=== PATIENT | male | born 1960 | race Two or more races ===

== ENCOUNTER 2021-09-17 18:22 | Inpatient (IN) ==
[2021-09-17] MEDS ORDERED: dilTIAZem HCl 5 MG/ML 5 ML VIAL IV STA ×2 (19:12→20:08)
[2021-09-17] MEDS ORDERED: ADENOSINE IV SOLN 3 MG/ML 2 ML VIAL IV ONE (19:17)
[2021-09-17 19:26] LABS: iSTAT Creatinine 0.5 mg/dl (0.6-1.3); iSTAT Hemoglobin 13.6 g/dl (14.0-18.0); iSTAT Ionized Calcium 1.2 mmol/l (1.12-1.32); iSTAT Potassium 3.6 mmol/L (3.3-5.0)
[2021-09-17 19:26] LABS: Hemoglobin 12.2 g/dL (14.0-18.0); Lymphocytes # (auto) 0.73 K/uL (1.2-3.4); Lymphocytes % (auto) 18.4 %; Mean Corpuscular Hemoglobin 24.4 pg (25-34); Mean Corpuscular Hgb Conc 32.1 g/dL (32-36); Mean Platelet Volume 8.9 fL (7.4-10.4); Monocytes # (auto) 0.01 K/uL (0.11-0.59); Monocytes % (auto) 0.3 %; Neutrophils # (auto) 3.22 K/uL (1.4-6.5); Neutrophils % (auto) 81.3 %; Platelet Count 271 K/uL (130-400); RDW Standard Deviation 42.6 fL (36.4-46.3); White Blood Count 3.96 K/uL (4.8-10.8)
[2021-09-17] MEDS ORDERED: STAT IV Infusion **Titration per Protocol STA (19:27)
[2021-09-17 19:33] LABS: Base Excess VBG 4.1 mEq/L; Oxygen Saturation VBG 95.8 %; pH VBG 7.35 (7.36-7.41)
--- NOTE | 2021-09-17 19:33 | XRay Report ---
XR chest 1V portable HISTORY: 61 years-old Male SEPSIS acute sepsis COMPARISON: PET CT 08/31/2021, chest radiograph 08/24/2021 TECHNIQUE: Portable AP view of the chest FINDINGS: There is progressive now complete opacification of the right hemithorax. Diffuse reticular nodular op acities throughout the left lung. Unchanged cardiac silhouette. Degenerative changes of the shoulders and spine. Lytic bony destruction of the right posterolateral third rib redemonstrated. IMPRESSION: 1. Complete opacification of the right hemithorax. 2. Diffuse reticular nodular opacities throughout the left lung suggestive of pulmonary metastasis. 3. Lytic destructive osseous lesion of the right third rib redemonstrated. ACT 112: Negative or not required by law. The above report was generated using voice recognition software. It may contain grammatical, syntax o r spelling errors. Electronically signed by: Alexys Reddy M.D. 09/17/2021 7:32 PM
[2021-09-17 19:36] LABS: INR 1.2 (0.9-1.1); Partial Thromboplastin Time 26.5 Seconds (21.0-31.0); Prothrombin Time 11.9 Seconds (9.0-12.0)
[2021-09-17] MEDS ORDERED: OPTIRAY 320 125ml IV ONE (19:42)
[2021-09-17 19:45] LABS: Alanine Aminotransferase 17 U/L (7-52); Albumin Globulin Ratio 1.1 (0.9-2); Albumin Level 3.6 gm/dl (3.4-5.0); Alkaline Phosphatase 110 U/L (34-104); Anion Gap 11 (3-11); Aspartate Aminotransferase 17 U/L (13-39); BUN Creatinine Ratio 26.8 (10-20); Bilirubin,Total 0.6 mg/dl (0.2-1.0); Blood Urea Nitrogen 11 mg/dl (6-23); Calcium 9.5 mg/dl (8.5-10.1); Carbon Dioxide 29 mmol/L (21-32); Chloride 83 mmol/L (98-107); Est GFR (African American) 146.1 ml/min; Globulin 3.4 gm/dl (2.5-4.0); Glucose 160 mg/dl (70-99(Fasting)); Magnesium 1.9 mg/dl (1.7-2.4); Potassium 3.5 mmol/L (3.5-5.1); Sodium 123 mmol/L (136-145)
[2021-09-17 19:47] LABS: Troponin I 0.04 ng/ml (0-0.04)
[2021-09-17] MEDS: dilTIAZem HCL 125 MG in DEXTROSE 5% 100 ML IV SCH (19:50)
[2021-09-17] MEDS ORDERED: CEFEPIME 2,000 MG/20 ML VIAL IV STA (19:54)
--- NOTE | 2021-09-17 20:11 | CT Scan Report ---
CT angio chest PE protocol CT DOSE: 467.06 mGy.cm HISTORY: 61 years-old Male with ro PE. Acute shortness of breath TECHNIQUE: Multiple CTA images of the chest were obtained after the intravenous administration of 120 ml Optiray. Coronal and sagittal MIPS were obtained from the axial data set and were submitted for review. All measurements were obtained according to NASCET criteria. A dose lowering technique was u tilized adhering to the principles of ALARA. COMPARISON: Head CT 08/31/2021, chest CT 07/18/2021 FINDINGS: CTA: Moderate cardiomegaly. No pericardial effusion. Moderate coronary artery calcifications. No thoracic aortic aneurysm or dissection. Atherosclerosis of the thoracic aortic arch and great vessels. There i s a hypodense filling defect within the proximal left subclavian artery as seen on image 227 series 4 measuring up to 3.5 cm in craniocaudal dimension, new from the 07/18/2021 study. There is satisfacto ry opacification of the pulmonary arterial tree. The segmental and subsegmental branches are suboptim ally visualized secondary to respiratory motion artifact. Cortical filling defects are noted within s egmental and subsegmental branches of the left lower lobe. CT CHEST: No thyroid nodule. Pathologically enlarged mediastinal, hilar and supraclavicular lymph nodes redemon strated. Small left with small to moderate right pleural effusions are new from prior. There is no pn eumothorax. There are progressively worsened reticular nodular opacities with intralobular septal thi ckening throughout the left lung. Patchy nodular consolidative opacities are also new from prior. Com plete opacification of the right lung obscures the patient's known right-sided pulmonary mass. Mucous plugging noted within the right mainstem bronchus. Multifocal hepatic metastasis with pathologic upper abdominal adenopathy again noted. Mesenteric carc inomatosis with increased amount of abdominal ascites. Increased size of the multifocal lytic osseous metastatic lesions, the largest measuring 3.1 cm within the lateral right third rib resulting in bon y destruction. Lesions are also seen throughout the vertebral bodies and sternum. IMPRESSION: 1. Progressively worsened diffuse metastatic disease including lymphadenopathy of the chest and upper abdomen, with pulmonary, mesenteric, osteolytic bony and hepatic metastatic disease. 2. 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 3. No central pulmonary emboli identified. Equivocal segmental and subsegmental pulmonary emboli of t he left lower lobe versus artifact from the respiratory motion. Correlation with lower extremity Dopp ler recommended. 4. Small left with small to moderate right pleural effusions are new from prior. 5. Peritoneal carcinomatosis with increased abdominal ascites. 6. Right mainstem mucous plugging with complete consolidation of the right lung. ACT 112: Negative or not required by law. The above report was generated using voice recognition software. It may contain grammatical, syntax o r spelling errors. Electronically signed by: Alexys Reddy M.D. 09/17/2021 8:10 PM
[2021-09-17] MEDS ORDERED: Heparin IV Adult Wt-Based Standard WITH Bolus Protocol IV STA (20:26)
[2021-09-17] MEDS ORDERED: ROCURONIUM BROMIDE 10 MG/ML 5 ML VIAL IV ONE (20:29)
[2021-09-17] MEDS ORDERED: ETOMIDATE 2 MG/ML 20 ML VIAL IV ONE (20:29)
[2021-09-17] MEDS ORDERED: HEPARIN SOD (PORCINE) 1000 UNIT/ML IV ONE (20:42)
[2021-09-17] MEDS ORDERED: HEPARIN SODIUM/DEXTROSE 25,000 UNITS/500 ML BAG IV SCH ×2 (20:45→21:00)
[2021-09-17 20:46] LABS: Influenza A virus by PCR Negative (Neg); Influenza B virus by PCR Negative (Neg); RSV by PCR Negative (Neg); SARS CoV2 RNA(COVID-19) InHosp NEGATIVE (Negative)
[2021-09-17] MEDS ORDERED: SODIUM CHLOR 7% 4 ML NEB NEB STA ×2 (20:57→20:59)
--- NOTE | 2021-09-17 20:57 | Emergency Department Note ---
History of Present Illness General Chief Complaint: Shortness of Breath/Dyspnea Stated Complaint: SOB, COVID EXPOSURE, Time Seen by Provider: 09/17/21 18:50 History of Present Illness Provider Complaint: shortness of breath Onset (ago): day(s) (1) Severity: severe Consistency/Duration: + progressively worsening Relieved By: + nothing Exacerbated By: + lying flat, + exertion, + movement and + coughing Known history of: other (Lung CA) Associated symptoms: + cough, + sputum production, + orthopnea and + diaphoresis; no wheezing, no hemoptysis, no abdominal pain or no chest congestion Treatment prior to arrival: oxygen HPI Narrative: Patient states he is not sure what type of lung cancer he has but he has been being managed with Dr. Deleon. Patient states his last chemotherapy was August 27, 2021, 3 weeks ago. Patient states that he spoke with his oncologist today who recommended changing his oxygen from 3 L to 6 L and when that did not help he recommended he come to the emergency department. Related Data Home oxygen amount: 3 liters Home Medications Medication Instructions Recorded Confirmed Type codeine 10 mg-guaifenesin 100 mg/5 10 ml PO Q4H PRN 09/17/21 09/17/21 History mL oral liquid docusate sodium 100 mg capsule 100 mg PO DAILY 09/17/21 09/17/21 History (Stool Softener) ibuprofen 200 mg tablet (Motrin IB) 400 mg PO Q6H PRN 09/17/21 09/17/21 History lorazepam 0.5 mg tablet 0.5 mg PO HS PRN 09/17/21 09/17/21 History olanzapine 2.5 mg tablet 2.5 mg PO DIRECTED PRN 09/17/21 09/17/21 History ondansetron HCl 8 mg tablet 8 mg PO Q8H PRN 09/17/21 09/17/21 History quetiapine 25 mg tablet 25 mg PO BID 09/17/21 09/17/21 History tiotropium bromide 2.5 2 puff INHALATION QAM 09/17/21 09/17/21 History mcg/actuation mist for inhalation (Spiriva Respimat) Allergies Allergy/AdvReac Type Severity Reaction Status Date / Time No Known Allergies Allergy Unverified 09/17/21 19:42 Past Med/Surg History Medical History (Updated 09/17/21 @ 21:07 by Humberto Aly) Lung cancer No pertinent past medical history Surgical History (Updated 09/17/21 @ 21:07 by Humberto Lu) No pertinent past surgical history Social History Smoking Status: Never smoker Preferred Language: Romanian Feels Safe at Home: Yes Review of Systems Unable to obtain due to respiratory distress. Physical Exam Vital Signs: Vital Signs - 24 hr 09/17/21 18:23 09/17/21 18:25 09/17/21 18:39 Temperature 36.8 C 36.7 C Temperature Source Oral Oral Pulse Rate 160 H 161 H Pulse Rate [Apical ] Pulse Rate from Sp O2 Sensor 159 H Respiratory Rate 32 H 32 H 50 H Respiratory Effort / Characteristics Accessory Muscle U se Labored Respiratory Depth Shallow Respiratory Patter n Blood Pressure 210/134 H Blood Pressure [Le ft Arm] Blood Pressure Latoya n 159 Blood Pressure Latoya n [Left Arm] Blood Pressure Pos ition Sitting Blood Pressure Pos ition [Left Arm] Pulse Oximetry 90 97 Oxygen Delivery Me thod Nasal Cannula Nasal Cannula Oxygen Flow Rate 6 Fraction of Inspir ed Oxygen SaO2/FiO2 Ratio Sepsis Recent Feve r Within 48 Hours No Sepsis New/Unexpla ined Change in Men shan Status No Sepsis Action Take n by Nursing Physician Notified 09/17/21 18:40 09/17/21 18:50 09/17/21 19:00 Temperature Temperature Source Pulse Rate 163 H 162 H 163 H Pulse Rate [Apical ] Pulse Rate from Sp O2 Sensor 155 H 158 H 160 H Respiratory Rate 26 H 24 35 H Respiratory Effort / Characteristics Respiratory Depth Respiratory Patter n Blood Pressure Blood Pressure [Le ft Arm] Blood Pressure Latoya n Blood Pressure Latoya n [Left Arm] Blood Pressure Pos ition Blood Pressure Pos ition [Left Arm] Pulse Oximetry 96 96 97 Oxygen Delivery Me thod Oxygen Flow Rate Fraction of Inspir ed Oxygen SaO2/FiO2 Ratio Sepsis Recent Feve r Within 48 Hours Sepsis New/Unexpla ined Change in Men shan Status Sepsis Action Take n by Nursing 09/17/21 19:10 09/17/21 19:15 09/17/21 19:20 Temperature Temperature Source Pulse Rate 162 H 161 H 158 H Pulse Rate [Apical ] Pulse Rate from Sp O2 Sensor 161 H 160 H 161 H Respiratory Rate 49 H 54 H 47 H Respiratory Effort / Characteristics Respiratory Depth Respiratory Patter n Blood Pressure 183/128 H Blood Pressure [Le ft Arm] Blood Pressure Latoya n 146 Blood Pressure Latoya n [Left Arm] Blood Pressure Pos ition Blood Pressure Pos ition [Left Arm] Pulse Oximetry 97 98 98 Oxygen Delivery Me thod Oxygen Flow Rate Fraction of Inspir ed Oxygen SaO2/FiO2 Ratio Sepsis Recent Feve r Within 48 Hours Sepsis New/Unexpla ined Change in Men shan Status Sepsis Action Take n by Nursing 09/17/21 19:23 09/17/21 19:28 09/17/21 19:30 Temperature Temperature Source Pulse Rate 161 H 92 H 118 H Pulse Rate [Apical ] Pulse Rate from Sp O2 Sensor 161 H 88 114 H Respiratory Rate 34 H 33 H 48 H Respiratory Effort / Characteristics Respiratory Depth Respiratory Patter n Blood Pressure 199/131 H 137/88 Blood Pressure [Le ft Arm] Blood Pressure Latoya n 153 104 Blood Pressure Latoya n [Left Arm] Blood Pressure Pos ition Blood Pressure Pos ition [Left Arm] Pulse Oximetry 96 94 94 Oxygen Delivery Me thod Oxygen Flow Rate Fraction of Inspir ed Oxygen SaO2/FiO2 Ratio Sepsis Recent Feve r Within 48 Hours Sepsis New/Unexpla ined Change in Men shan Status Sepsis Action Take n by Nursing 09/17/21 19:47 09/17/21 19:48 09/17/21 19:50 Temperature Temperature Source Pulse Rate 155 H 156 H Pulse Rate [Apical ] Pulse Rate from Sp O2 Sensor 156 H Respiratory Rate 19 39 H Respiratory Effort / Characteristics Respiratory Depth Respiratory Patter n Blood Pressure 177/125 H Blood Pressure [Le ft Arm] Blood Pressure Latoya n 142 Blood Pressure Latoya n [Left Arm] Blood Pressure Pos ition Blood Pressure Pos ition [Left Arm] Pulse Oximetry 89 L Oxygen Delivery Me thod Oxygen Flow Rate Fraction of Inspir ed Oxygen SaO2/FiO2 Ratio Sepsis Recent Feve r Within 48 Hours Sepsis New/Unexpla ined Change in Men shan Status Sepsis Action Take n by Nursing 09/17/21 19:53 09/17/21 20:00 09/17/21 20:10 Temperature Temperature Source Pulse Rate 113 H 148 H 89 Pulse Rate [Apical ] Pulse Rate from Sp O2 Sensor 155 H 79 Respiratory Rate 38 H 40 H 42 H Respiratory Effort / Characteristics Labored Respiratory Depth Shallow Respiratory Patter n Tachypnea Blood Pressure 131/77 Blood Pressure [Le ft Arm] Blood Pressure Latoya n 95 Blood Pressure Latoya n [Left Arm] Blood Pressure Pos ition Blood Pressure Pos ition [Left Arm] Pulse Oximetry 94 95 94 Oxygen Delivery Me thod Oxygen Flow Rate Fraction of Inspir ed Oxygen 50 SaO2/FiO2 Ratio Sepsis Recent Feve r Within 48 Hours Sepsis New/Unexpla ined Change in Men shan Status Sepsis Action Take n by Nursing 09/17/21 20:14 09/17/21 20:17 09/17/21 20:19 Temperature Temperature Source Pulse Rate 120 H Pulse Rate [Apical ] 98 H Pulse Rate from Sp O2 Sensor 125 H Respiratory Rate 40 H 47 H Respiratory Effort / Characteristics Accessory Muscle U se Labored Short o f Breath Labored Respiratory Depth Respiratory Patter n Tachypnea Blood Pressure 131/92 Blood Pressure [Le ft Arm] 131/77 Blood Pressure Latoya n 105 Blood Pressure Latoya n [Left Arm] 95 Blood Pressure Pos ition Blood Pressure Pos ition [Left Arm] Semi-fowlers Pulse Oximetry 94 94 Oxygen Delivery Me thod BiPAP Nasal Cannula Oxygen Flow Rate 6 Fraction of Inspir ed Oxygen 50 SaO2/FiO2 Ratio 188 Sepsis Recent Feve r Within 48 Hours Sepsis New/Unexpla ined Change in Men shan Status Sepsis Action Take n by Nursing 09/17/21 20:20 09/17/21 20:21 09/17/21 20:26 Temperature Temperature Source Pulse Rate 118 H 130 H Pulse Rate [Apical ] Pulse Rate from Sp O2 Sensor 120 H 142 H Respiratory Rate 47 H 43 H Respiratory Effort / Characteristics Respiratory Depth Respiratory Patter n Blood Pressure 128/90 145/100 H Blood Pressure [Le ft Arm] Blood Pressure Latoya n 102 115 Blood Pressure Latoya n [Left Arm] Blood Pressure Pos ition Blood Pressure Pos ition [Left Arm] Pulse Oximetry 94 91 91 Oxygen Delivery Me thod Nasal Cannula Oxygen Flow Rate Fraction of Inspir ed Oxygen SaO2/FiO2 Ratio Sepsis Recent Feve r Within 48 Hours Sepsis New/Unexpla ined Change in Men shan Status Sepsis Action Take n by Nursing 09/17/21 20:30 09/17/21 20:40 Temperature Temperature Source Pulse Rate 122 H 100 H Pulse Rate [Apical ] Pulse Rate from Sp O2 Sensor 119 H 101 H Respiratory Rate 50 H 43 H Respiratory Effort / Characteristics Respiratory Depth Respiratory Patter n Blood Pressure 155/102 H 163/91 H Blood Pressure [Le ft Arm] Blood Pressure Latoya n 119 115 Blood Pressure Latoya n [Left Arm] Blood Pressure Pos ition Blood Pressure Pos ition [Left Arm] Pulse Oximetry 94 92 Oxygen Delivery Me thod Oxygen Flow Rate Fraction of Inspir ed Oxygen SaO2/FiO2 Ratio Sepsis Recent Feve r Within 48 Hours Sepsis New/Unexpla ined Change in Men shan Status Sepsis Action Take n by Nursing Physical Exam: Physical Exam GENERAL: Extremely ill-appearing. Diaphoretic. EYES: Conjunctivae and EOM are normal. Pupils are equal, round, and reactive to light. Right eye exhibits no discharge. Left eye exhibits no discharge. No scleral icterus. NECK: Normal range of motion. Neck supple. No JVD present. CV: Tachycardic rate, regular rhythm, normal heart sounds and intact distal pulses. There is no peripheral edema. Palpable radial pulses bue. PULM/CHEST: Tachypneic. Rhonchi. Expiratory wheezes. Inspiratory rales. Diminished breath sounds over the right. - Chest Wall: He exhibits no tenderness. ABD: The abdomen is soft. NEURO: He is alert and oriented to person, place, and time. He has normal strength. No cranial nerve deficit or sensory deficit. SKIN: Pale and diaphoretic. Course Course 1849: The patient was evaluated in room B7. A complete history and physical exam was performed Cardiac monitoring: An order was placed for continuous cardiac monitoring. The monitor shows a rate of 160 with sinus tachycardia rhythm Patient appears to be in a sinus tachycardia versus SVT on worm picker. Adenosine 6 mg will be ordered for the patient. 1902: Right lung was completely shasta out on chest x-ray. Will attempt to stabilize patient hemodynamically and then send the patient over for CT of the chest given his white out of the long and known cancer history there is strong concern for PE. 1926: 0: Patient was hypertensive prior to administration adenosine 6 mg IV push given to the patient which revealed that the patient is in an atrial flutter. Cardizem 20 mg IV push ordered for the patient which improved his ventricular rate into the 90-110 range. Patient started on Cardizem drip. I- STAT creatinine within normal limits. I-STAT sodium low. Patient was taken for CT of the chest. 1999:On return from CAT scan the patient is in worse respiratory distress. Patient will be started on BiPAP 12/5. Patient also be given repeat bolus of Cardizem as he is again tachycardic. Cardizem drip increased. Spoke with raw juice weigher Dr. Barillas who reviewed the patient's CTA with me. He states the right lung is completely collapsed and there is no effusion. He states there is all metastasis in the right lung which appears to have worsened from the recent PET scan. He states there is no need for any emergent thoracentesis at this time. Labs show white blood cell count of 3.96. Coagulation studies are within normal limits. Venous pH 7.35 venous PCO2 57. Sodium 123. Creatinine within normal limits. Lactic acid 2.2. The lactic acidemia is most likely due to the patient's hypoxia however broad-spectrum antibiotics will be started. Did discuss the case with the [facility] team Dr. Kasper who will evaluate the patient. 2024: CTA of the chest read by radiology confirms the progressively worsened diffuse metastatic disease. They state there is a 3.5 cm thrombus in the left subclavian vein. No central pulmonary embolus identified however equivocal segmental and subsegmental pulmonary emboli of the left lower lobe versus artifact from respiratory motion. There is peritoneal carcinomatosis with abdominal ascites and a right mainstem mucous plugging with complete consolidation of the right lung. Discussed with ICU Dr. Barillas if we should begin anticoagulation on the patient and he states we should heparinize the patient as he is hypercoagulable from cancer. Patient is currently tolerating BiPAP well. Dr. Barillas recommends respiratory therapy to start vibratory vest and hypertonic saline to see if we can clear the mucous plug as a conservative strategy. Administered Medications Diltiazem HCl 125 mg/ Dextrose 125 mls @ 5 mls/hr IV .Q24H [facility]; Protocol Stop: 10/17/21 19:29 Last Titration: 09/17/21 20:10 Dose: 15 mg/hr, 15 mls/hr Documented by: [id number] Cosigned by: [id number] Admin: 09/17/21 19:50 Dose: 10 mg/hr, 10 mls/hr Documented by: [id number] Cosigned by: [id number] Discontinued Medications Diltiazem HCl (Diltiazem Hcl 5 Mg/Ml 5 Ml Vial) 25 mg IV NOW STA Stop: 09/17/21 20:09 Last Admin: 09/17/21 20:10 Dose: 25 mg Documented by: [id number] Cosigned by: [id number] Heparin Sodium/Dextrose (Heparin Iv Adult Wt-Based Standard With Bolus Protocol) 1 ea IV NOW STA; Protocol Stop: 09/17/21 20:27 Last Admin: 09/17/21 21:12 Dose: 1 ea Documented by: [id number] Cefepime HCl (Maxipime) 2,000 mg in 20 mls @ 5 mls/min IV NOW STA; Protocol Stop: 09/17/21 19:57 Last Admin: 09/17/21 20:16 Dose: 5 mls/min Documented by: [id number] Ioversol (Optiray 320 125ml) 120 ml IV ONCE ONE Stop: 09/17/21 19:43 Last Admin: 09/17/21 19:42 Dose: 120 ml Documented by: [id number] Miscellaneous (Stat Iv Infusion Titration Per Protocol) 1 ea N/A NOW STA Stop: 09/17/21 19:28 Last Admin: 09/17/21 20:00 Dose: Not Given Documented by: [id number] Sodium Chloride (Sodium Chlor 7% 4 Ml Neb) 4 ml NEB NOW STA Stop: 09/17/21 20:58 Last Admin: 09/17/21 21:14 Dose: 4 ml Documented by: [id number] Medical Decision Making Laboratory Data Result diagrams: 09/17/21 19:17 09/17/21 19:17 Lab Results 09/17/21 09/17/21 09/17/21 Range/Units 19:12 19:17 19:17 WBC 3.96 L (4.8-10.8) K/uL RBC 5.00 (4.7-6.1) M/uL Hgb 12.2 L (14.0-18.0) g/dL POC Hgb 13.6 L (14.0-18.0) g/dl Hct 38.0 L (42-52) % POC Hct 40 L (42-52) % MCV 76.0 L (80-100) fL MCH 24.4 L (25-34) pg MCHC 32.1 (32-36) g/dL RDW Std Deviation 42.6 (36.4-46.3) fL RDW Coeff of Tristian 16.0 H (11.5-14.5) % Plt Count 271 (130-400) K/uL MPV 8.9 (7.4-10.4) fL Immature Gran % (Auto) 0.0 % Neut % (Auto) 81.3 % Lymph % (Auto) 18.4 % [place] % (Auto) 0.3 % Eos % (Auto) 0.0 % Baso % (Auto) 0.0 % Neut # (Auto) 3.22 (1.4-6.5) K/uL Lymph # (Auto) 0.73 L (1.2-3.4) K/uL [place] # (Auto) 0.01 L (0.11-0.59) K/uL Eos # (Auto) 0.00 (0-0.5) K/uL Baso # (Auto) 0.00 (0-0.2) K/uL Immature Gran # (Auto) 0.00 (0.00-0.02) K/uL PT (9.0-12.0) Seconds INR (0.9-1.1) APTT (21.0-31.0) Seconds PTT Ratio VBG pH 7.35 L (7.36-7.41) VBG pCO2 57 H (38-50) mmHg VBG pO2 82 mmHg VBG HCO3 31 mmol/L VBG O2 Saturation 95.8 % VBG Base Excess 4.1 mEq/L Barometric Pressure 730.2 mm/Hg POC Sodium 122 L (135-144) mmol/L Sodium (136-145) mmol/L POC Potassium 3.6 (3.3-5.0) mmol/L Potassium (3.5-5.1) mmol/L POC Chloride 82 L (101-112) mmol/L Chloride (98-107) mmol/L Carbon Dioxide (21-32) mmol/L POC Total CO2 32 H (24-31) mmol/L Anion Gap (3-11) POC Anion Gap 13.0 L (16-25) mmol/L POC BUN 12 (7-18) mg/dl BUN (6-23) mg/dl Creatinine (0.6-1.4) mg/dl POC Creatinine 0.5 L (0.6-1.3) mg/dl Est Cr Clr Drug Dosing Est GFR ( Amer) ml/min Est GFR (Non-Af Amer) ml/min BUN/Creatinine Ratio (10-20) Glucose (70-99(Fasting)) mg/dl POC Glucose (other) 170 H (70-99) mg/dl Lactate (0.4-2.0) mmol/L Calcium (8.5-10.1) mg/dl POC Ioniz Calcium Bala 1.20 (1.12-1.32) mmol/l Magnesium (1.7-2.4) mg/dl Total Bilirubin (0.2-1.0) mg/dl AST (13-39) U/L ALT (7-52) U/L Alkaline Phosphatase (34-104) U/L Troponin I (0-0.04) ng/ml B-Natriuretic Peptide (0-100) pg/ml Total Protein (6.0-8.3) gm/dl Albumin (3.4-5.0) gm/dl Globulin (2.5-4.0) gm/dl Albumin/Globulin Ratio (0.9-2) Procalcitonin (0-0.5) ng/ml SARS-CoV-2 (PCR) (Negative) Influenza Type A (PCR) (Neg) Influenza Type B (PCR) (Neg) RSV (RT-PCR) (Neg) 09/17/21 09/17/21 09/17/21 Range/Units 19:17 19:17 19:17 WBC (4.8-10.8) K/uL RBC (4.7-6.1) M/uL Hgb (14.0-18.0) g/dL POC Hgb (14.0-18.0) g/dl Hct (42-52) % POC Hct (42-52) % MCV (80-100) fL MCH (25-34) pg MCHC (32-36) g/dL RDW Std Deviation (36.4-46.3) fL RDW Coeff of Tristian (11.5-14.5) % Plt Count (130-400) K/uL MPV (7.4-10.4) fL Immature Gran % (Auto) % Neut % (Auto) % Lymph % (Auto) % [place] % (Auto) % Eos % (Auto) % Baso % (Auto) % Neut # (Auto) (1.4-6.5) K/uL Lymph # (Auto) (1.2-3.4) K/uL [place] # (Auto) (0.11-0.59) K/uL Eos # (Auto) (0-0.5) K/uL Baso # (Auto) (0-0.2) K/uL Immature Gran # (Auto) (0.00-0.02) K/uL PT 11.9 (9.0-12.0) Seconds INR 1.2 H (0.9-1.1) APTT 26.5 (21.0-31.0) Seconds PTT Ratio 1.0 VBG pH (7.36-7.41) VBG pCO2 (38-50) mmHg VBG pO2 mmHg VBG HCO3 mmol/L VBG O2 Saturation % VBG Base Excess mEq/L Barometric Pressure mm/Hg POC Sodium (135-144) mmol/L Sodium 123 L (136-145) mmol/L POC Potassium (3.3-5.0) mmol/L Potassium 3.5 (3.5-5.1) mmol/L POC Chloride (101-112) mmol/L Chloride 83 L (98-107) mmol/L Carbon Dioxide 29 (21-32) mmol/L POC Total CO2 (24-31) mmol/L Anion Gap 11 (3-11) POC Anion Gap (16-25) mmol/L POC BUN (7-18) mg/dl BUN 11 (6-23) mg/dl Creatinine 0.41 L (0.6-1.4) mg/dl POC Creatinine (0.6-1.3) mg/dl Est Cr Clr Drug Dosing Not Reportable Est GFR ( Amer) 146.1 ml/min Est GFR (Non-Af Amer) 126.0 ml/min BUN/Creatinine Ratio 26.8 H (10-20) Glucose 160 H (70-99(Fasting)) mg/dl POC Glucose (other) (70-99) mg/dl Lactate 2.2 H* (0.4-2.0) mmol/L Calcium 9.5 (8.5-10.1) mg/dl POC Ioniz Calcium Bala (1.12-1.32) mmol/l Magnesium 1.9 (1.7-2.4) mg/dl Total Bilirubin 0.6 (0.2-1.0) mg/dl AST 17 (13-39) U/L ALT 17 (7-52) U/L Alkaline Phosphatase 110 H (34-104) U/L Troponin I 0.04 (0-0.04) ng/ml B-Natriuretic Peptide (0-100) pg/ml Total Protein 7.0 (6.0-8.3) gm/dl Albumin 3.6 (3.4-5.0) gm/dl Globulin 3.4 (2.5-4.0) gm/dl Albumin/Globulin Ratio 1.1 (0.9-2) Procalcitonin (0-0.5) ng/ml SARS-CoV-2 (PCR) (Negative) Influenza Type A (PCR) (Neg) Influenza Type B (PCR) (Neg) RSV (RT-PCR) (Neg) 09/17/21 09/17/21 09/17/21 Range/Units 19:17 19:17 20:00 WBC (4.8-10.8) K/uL RBC (4.7-6.1) M/uL Hgb (14.0-18.0) g/dL POC Hgb (14.0-18.0) g/dl Hct (42-52) % POC Hct (42-52) % MCV (80-100) fL MCH (25-34) pg MCHC (32-36) g/dL RDW Std Deviation (36.4-46.3) fL RDW Coeff of Tristian (11.5-14.5) % Plt Count (130-400) K/uL MPV (7.4-10.4) fL Immature Gran % (Auto) % Neut % (Auto) % Lymph % (Auto) % [place] % (Auto) % Eos % (Auto) % Baso % (Auto) % Neut # (Auto) (1.4-6.5) K/uL Lymph # (Auto) (1.2-3.4) K/uL [place] # (Auto) (0.11-0.59) K/uL Eos # (Auto) (0-0.5) K/uL Baso # (Auto) (0-0.2) K/uL Immature Gran # (Auto) (0.00-0.02) K/uL PT (9.0-12.0) Seconds INR (0.9-1.1) APTT (21.0-31.0) Seconds PTT Ratio VBG pH (7.36-7.41) VBG pCO2 (38-50) mmHg VBG pO2 mmHg VBG HCO3 mmol/L VBG O2 Saturation % VBG Base Excess mEq/L Barometric Pressure mm/Hg POC Sodium (135-144) mmol/L Sodium (136-145) mmol/L POC Potassium (3.3-5.0) mmol/L Potassium (3.5-5.1) mmol/L POC Chloride (101-112) mmol/L Chloride (98-107) mmol/L Carbon Dioxide (21-32) mmol/L POC Total CO2 (24-31) mmol/L Anion Gap (3-11) POC Anion Gap (16-25) mmol/L POC BUN (7-18) mg/dl BUN (6-23) mg/dl Creatinine (0.6-1.4) mg/dl POC Creatinine (0.6-1.3) mg/dl Est Cr Clr Drug Dosing Est GFR ( Amer) ml/min Est GFR (Non-Af Amer) ml/min BUN/Creatinine Ratio (10-20) Glucose (70-99(Fasting)) mg/dl POC Glucose (other) (70-99) mg/dl Lactate (0.4-2.0) mmol/L Calcium (8.5-10.1) mg/dl POC Ioniz Calcium Bala (1.12-1.32) mmol/l Magnesium (1.7-2.4) mg/dl Total Bilirubin (0.2-1.0) mg/dl AST (13-39) U/L ALT (7-52) U/L Alkaline Phosphatase (34-104) U/L Troponin I (0-0.04) ng/ml B-Natriuretic Peptide 701 H (0-100) pg/ml Total Protein (6.0-8.3) gm/dl Albumin (3.4-5.0) gm/dl Globulin (2.5-4.0) gm/dl Albumin/Globulin Ratio (0.9-2) Procalcitonin 0.12 (0-0.5) ng/ml SARS-CoV-2 (PCR) NEGATIVE (Negative) Influenza Type A (PCR) Negative (Neg) Influenza Type B (PCR) Negative (Neg) RSV (RT-PCR) Negative (Neg) Imaging Data Radiologist's Impression: Chest CTA 09/17/21 18:50 CT angio chest PE protocol CT DOSE: 467.06 mGy.cm HISTORY: 61 years-old Male with ro PE. Acute shortness of breath TECHNIQUE: Multiple CTA images of the chest were obtained after the intravenous administration of 120 ml Optiray. Coronal and sagittal MIPS were obtained from the axial data set and were submitted for review. All measurements were obtained according to NASCET criteria. A dose lowering technique was utilized adhering to the principles of ALARA. COMPARISON: Head CT 08/31/2021, chest CT 07/18/2021 FINDINGS: CTA: Moderate cardiomegaly. No pericardial effusion. Moderate coronary artery calcifications. No thoracic aortic aneurysm or dissection. Atherosclerosis of the thoracic aortic arch and great vessels. There is a hypodense filling defect within the proximal left subclavian artery as seen on image 227 series 4 measuring up to 3.5 cm in craniocaudal dimension, new from the 07/18/2021 study. There is satisfactory opacification of the pulmonary arterial tree. The segmental and subsegmental branches are suboptimally visualized secondary to respiratory motion artifact. Cortical filling defects are noted within segmental and subsegmental branches of the left lower lobe. CT CHEST: No thyroid nodule. Pathologically enlarged mediastinal, hilar and supraclavicular lymph nodes redemonstrated. Small left with small to moderate right pleural effusions are new from prior. There is no pneumothorax. There are progressively worsened reticular nodular opacities with intralobular septal thickening throughout the left lung. Patchy nodular consolidative opacities are also new from prior. Complete opacification of the right lung obscures the patient's known right-sided pulmonary mass. Mucous plugging noted within the right mainstem bronchus. Multifocal hepatic metastasis with pathologic upper abdominal adenopathy again noted. Mesenteric carcinomatosis with increased amount of abdominal ascites. Increased size of the multifocal lytic osseous metastatic lesions, the largest measuring 3.1 cm within the lateral right third rib resulting in bony destruction. Lesions are also seen throughout the vertebral bodies and sternum. IMPRESSION: 1. Progressively worsened diffuse metastatic disease including lymphadenopathy of the chest and upper abdomen, with pulmonary, mesenteric, osteolytic bony and hepatic metastatic disease. 2. 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 3. No central pulmonary emboli identified. Equivocal segmental and subsegmental pulmonary emboli of the left lower lobe versus artifact from the respiratory motion. Correlation with lower extremity Doppler recommended. 4. Small left with small to moderate right pleural effusions are new from prior. 5. Peritoneal carcinomatosis with increased abdominal ascites. 6. Right mainstem mucous plugging with complete consolidation of the right lung. ACT 112: Negative or not required by law. The above report was generated using voice recognition software. It may contain grammatical, syntax or spelling errors. Electronically signed by: Alexys Reddy M.D. 09/17/2021 8:10 PM Chest X-Ray 09/17/21 18:50 XR chest 1V portable HISTORY: 61 years-old Male SEPSIS acute sepsis COMPARISON: PET CT 08/31/2021, chest radiograph 08/24/2021 TECHNIQUE: Portable AP view of the chest FINDINGS: There is progressive now complete opacification of the right hemithorax. Diffuse reticular nodular opacities throughout the left lung. Unchanged cardiac silhouette. Degenerative changes of the shoulders and spine. Lytic bony destruction of the right posterolateral third rib redemonstrated. IMPRESSION: 1. Complete opacification of the right hemithorax. 2. Diffuse reticular nodular opacities throughout the left lung suggestive of pulmonary metastasis. 3. Lytic destructive osseous lesion of the right third rib redemonstrated. ACT 112: Negative or not required by law. The above report was generated using voice recognition software. It may contain grammatical, syntax or spelling errors. Electronically signed by: Alexys Reddy M.D. 09/17/2021 7:32 PM ECG Data Interpretation: EKG #1 at 1900: SVT with rate of 161. QRS [address] elevation or ST depression. EKG #2 at 1926 status post 6 mg adenosine and 20 mg Cardizem bolus: Atrial flutter with a ventricular rate of 100. QRS 100. QTc 436. No ST elevation or ST depression. [facility] Narrative 1850: The patient was evaluated in room B7. A complete history and physical exam was performed Cardiac monitoring: An order was placed for continuous cardiac monitoring. The monitor shows a rate of 160 with sinus tachycardia rhythm Patient appears to be in a sinus tachycardia versus SVT on worm picker. Adenosine 6 mg will be ordered for the patient. 190: Right lung was completely shasta out on chest x-ray. Will attempt to stabilize patient hemodynamically and then send the patient over for CT of the chest given his white out of the long and known cancer history there is strong concern for PE. 1926: 1939: Patient was hypertensive prior to administration adenosine 6 mg IV push given to the patient which revealed that the patient is in an atrial flutter. Cardizem 20 mg IV push ordered for the patient which improved his ventricular rate into the 90-110 range. Patient started on Cardizem drip. I- STAT creatinine within normal limits. I-STAT sodium low. Patient was taken for CT of the chest. 1999:On return from CAT scan the patient is in worse respiratory distress. Patient will be started on BiPAP /. Patient also be given repeat bolus of Cardizem as he is again tachycardic. Cardizem drip increased. Spoke with raw juice weigher Dr. Barillas who reviewed the patient's CTA with me. He states the right lung is completely collapsed and there is no effusion. He states there is all metastasis in the right lung which appears to have worsened from the recent PET scan. He states there is no need for any emergent thoracentesis at this time. Labs show white blood cell count of 3.96. Coagulation studies are within normal limits. Venous pH 7.35 venous PCO2 57. Sodium 123. Creatinine within normal limits. Lactic acid 2.2. The lactic acidemia is most likely due to the patient's hypoxia however broad-spectrum antibiotics will be started. Did discuss the case with the [facility] hospitalist team Dr. Kasper who will evaluate the patient. 2024: CTA of the chest read by radiology confirms the progressively worsened diffuse metastatic disease. They state there is a 3.5 cm thrombus in the left subclavian vein. No central pulmonary embolus identified however equivocal segmental and subsegmental pulmonary emboli of the left lower lobe versus artifact from respiratory motion. There is peritoneal carcinomatosis with abd ominal ascites and a right mainstem mucous plugging with complete consolidation of the right lung. Discussed with ICU Dr. Barillas if we should begin anticoagulation on the patient and he states we should heparinize the patient as he is hypercoagulable from cancer. Patient is currently tolerating BiPAP well. Dr. Barillas recommends respiratory therapy to start vibratory vest and hypertonic saline to see if we can clear the mucous plug as a conservative strategy. Impression & Plan Hypoxia, Pulmonary emboli, Acute respiratory distress, Atrial flutter with rapid ventricular response, Acute hyponatremia Critical Care Time Critical Care Time: Yes Total Critical Care Time: 92 I have personally spent greater than 92 minutes of critical care time in the direct management of this patient. This includes bedside care, interpretation of diagnostic studies, and testing, discussion with consultants, patient, and family members, and other required patient management activities. This 92 minutes is in excess of all separately billable procedures. Discharge Plan Visit Data Chief Complaint: Shortness of Breath/Dyspnea Stated Complaint: SOB, COVID EXPOSURE, Discharge Problem: Hypoxia, Pulmonary emboli, Acute respiratory distress, Atrial flutter with rapid ventricular response, Acute hyponatremia Patient Disposition: Admitted As Inpatient Forms Stand Alone Forms: [facility] Prescriptions Prescriptions: No Action quetiapine 25 mg tablet 25 mg PO BID RF: 0 ondansetron HCl 8 mg tablet 8 mg PO Q8H PRN (Reason: Nausea) RF: 0 olanzapine 2.5 mg tablet 2.5 mg PO DIRECTED PRN (Reason: after chemo) RF: 0 lorazepam 0.5 mg tablet 0.5 mg PO HS PRN (Reason: Sleep) RF: 0 codeine-guaifenesin 10-100 mg/5 mL liquid 10 ml PO Q4H PRN (Reason: Cough) RF: 0 ibuprofen [Motrin IB] 200 mg Tablet 400 mg PO Q6H PRN (Reason: Pain) RF: 0 docusate sodium [Stool Softener] 100 mg Capsule 100 mg PO DAILY RF: 0 Spiriva Respimat 2.5 mcg/actuation Mist 2 puff INHALATION QAM RF: 0 Referrals Referrals: Ester Lundy MD [Primary Care Provider] -
[2021-09-17] MEDS ORDERED: ALBUTEROL 0.5% NEB SOLN 2.5 MG/0.5 ML VIAL NEB STA (20:59)
[2021-09-17] MEDS ORDERED: Heparin IV Adult Wt-Based Standard *NO* Bolus Protocol IV SCH (21:00)
[2021-09-17] MEDS: ALBUTEROL HFA 8 GM INHALER INH SCH (21:21)
--- NOTE | 2021-09-17 21:33 | Critical Care Consultation ---
Date of Consultation September 17, 2021 Assessment & Plan (1) Respiratory failure with hypoxia: Reason Critically Ill: 61-year-old male with recent diagnosis of large cell neuroendocrine tumor with progressively with large mass lesion involving greater than 50% of the right hemithorax presents to the ICU with new onset A. fib RVR and acute hypoxic respiratory failure requiring BiPAP. Complete consolidation of right lung, possible segmental and subsegmental PE of the left lower lobe, and progressively worsening metastatic disease including lymphadenopathic of the chest and upper abdomen, with pulmonary, mesenteric, osteolytic bony, and hepatic metastatic disease seen on CTA. Neuro - [facility] ICU: Negative Anxiety and depressioncontinue Ativan, SSRI Cardiac - A. fib RVRinitial presentation with A. fib RVR with heart rate 160s on EKG. No prior history. Received 6 mg IV adenosine in the ED. Now rate controlled on diltiazem drip. We will continue diltiazem drip for now and he is on heparin drip as well for anticoagulation. Continuous monitoring on telemetry with goal heart rate less than 110. 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 He is currently on 3 L O2 at home. He underwent chemo on September 03, but is unsure of the name of the medication he received. He now has progression of disease and complete consolidation of the right lung which may be due to mucous plugging versus obstructing tumor. He also has possible segmental and subsegmental PEs of the left lower lobe and is now on heparin drip. Currently requiring BiPAP, no severe acidosis on VBG, however he is hypoxic and tachypneic with respiratory rate in the low 30s. Will start on percussive therapy and hypertonic nebs. Patient was also severely tachycardic with elevated BNP. He has small pleural effusions and may have element of pulmonary congestion due to the tachycardia, will give Lasix x1. Patient may benefit from bronchoscopy and could potentially require transfer to tertiary center for possible surgical intervention. Will admit to ICU and stabilized tonight. Low threshold for intubation although liberating from vent may be difficult given severity of disease and patient displays a poor prognosis. Patient is aware that this is a terminal illness and all treatments are palliative but would like to proceed with any treatment available at this time. GI - N.p.o. Metastasis to liverLFTs unremarkable. Patient does have ascites. Trend for now RENAL/LYTES - Acute hyponatremiaunsure if this is SIADH as patient does have metastatic d isease and lesion of the brain. Patient's also did state that she has been making him drink lots of water so questionable polydipsia. He is currently asymptomatic. Urine sodium and creatinine pending. Will fluid restrict and trend for now. Goal sodium to raise by 8 mEq/L per 24-hour - Strict I's and O's ENDO - No history of diabetes or thyroid disease HEME - H&H stable, monitor routine CBCs ID - No clear indication for infectious process at this time. Patient was started on empiric Zosyn due to right lobe obstruction/collapse. Blood cultures pending LINES/IV ACCESS - Peripheral IVs DVT PROPHYLAXIS - Patient does have subclavian thrombus. Currently on heparin drip. CODE STATUS: Full code I have personally spent 50 minutes of critical care time in the direct manage ment of this patient. This is a life/limb threatening event. This includes time spent evaluating patient, direct bedside care, chart review, placing orders, interpretation of diagnostic studies, discussion with consultants, patient, and family members, as well as other required patient management activities. This time is exclusive of all separately billable procedures, and teaching time and separate from and in addition to any other critical care service time. Thank you for allowing us to participate in the care of this patient. Please refer to my attending physician's documentation for any further recommendations. (2) Metastatic malignant neoplasm to lung: (3) Ascites: (4) Pleural effusion: (5) Acute hyponatremia: (6) Pulmonary emboli: (7) Atrial fibrillation with RVR: History of Present Illness History of Present Illness Patient is a 61-year-old male with recent diagnosis of metastatic large cell neuroendocrine tumor, currently on 3 L O2 requirement at home. He has progression of disease with metastasis to brain, lung, lymphadenopathic of the chest, liver, and osteolytic. He was recently started on chemotherapy as of September [address] Deleon. He presented to the emergency department earlier this evening with complaints of worsening shortness of breath associated with exertion. He initially tried to increase his O2 to 6 L which did not help. In the emergency department patient was found to be A. fib with RVR with heart rate 160. He was given adenosine 6 mg x 1 without improvement in rates and was then started on diltiazem drip for rate control. CT chest showed right lung collapse with possible mucous plugging and possible PEs of the left lower lobe. He was started on heparin drip and also started on percussive therapy with hypertonic nebulizers. He is currently requiring BiPAP and is tachypneic with respiratory rate in the low 30s. Patient was also found to be hyponatremic with sodium 123. Currently patient is alert and oriented. He is tachypneic without use of accessory muscles on BiPAP. He reports shortness of breath and feeling more fatigued recently. He denies any headaches, dizziness, changes in vision, sore throat, fevers, cough, chest pain or palpitations, abdominal pain, nausea or vomiting, diarrhea, changes in gait, or changes in urinary stream or frequency. Ultimately the patient's prognosis is extremely poor considering the severity of his disease and recent progression. I did have a discussion with the patient regarding his CODE STATUS and at this time he would like to remain full code and proceed with any interventions that may prolong his life. He is currently aware that this is a terminal disease but would like to have more time as this is a recent diagnosis. Patient is currently being admitted to the ICU for further management at this time. Allergies Allergy/AdvReac Type Severity Reaction Status Date / Time No Known Allergies Allergy Unverified 09/17/21 19:42 Home Medications Medication Instructions Recorded Confirmed Type codeine 10 mg-guaifenesin 100 mg/5 10 ml PO Q4H PRN 09/17/21 09/17/21 History mL oral liquid docusate sodium 100 mg capsule 100 mg PO DAILY 09/17/21 09/17/21 History (Stool Softener) ibuprofen 200 mg tablet (Motrin IB) 400 mg PO Q6H PRN 09/17/21 09/17/21 History lorazepam 0.5 mg tablet 0.5 mg PO HS PRN 09/17/21 09/17/21 History olanzapine 2.5 mg tablet 2.5 mg PO DIRECTED PRN 09/17/21 09/17/21 History ondansetron HCl 8 mg tablet 8 mg PO Q8H PRN 09/17/21 09/17/21 History quetiapine 25 mg tablet 25 mg PO BID 09/17/21 09/17/21 History tiotropium bromide 2.5 2 puff INHALATION QAM 09/17/21 09/17/21 History mcg/actuation mist for inhalation (Spiriva Respimat) Patient History Medical History Lung cancer Surgical History No pertinent past surgical history Social History Smoking Status: Never smoker Preferred Language: [place] Communication Ability: Effective Belt Maker Helper Required: No Current Living Situation: Spouse Feels Safe at Home: Yes Assistive Devices: Oxygen - Continuous Review of Systems Review of Systems: All systems reviewed & are unremarkable except as noted in HPI & below Physical Exam Constitutional: WD/WN, vitals as above Eyes: PERRL, conjunctivae normal, anicteric sclerae ENMT: external ear and nose normal, oropharynx normal Neck: trachea midline, no thyromegaly Respiratory: + tachypneic and symmetric chest movement; no labored breathing, no cough and no stridor Auscultation: + crackles and + rhonchi; no wheezes Cardiovascular: Rate/Rhythm: + tachycardic and + irregularly irregular Heart Sounds: normal S1 and normal S2; no murmur Vessels: no JVD Extremities: no edema Gastrointestinal (Abdomen): normal bowel sounds, soft, nontender, no hepatosplenomegaly Musculoskeletal: no cyanosis or clubbing, extremities motor strength 5/5 Skin: no rashes, warm and dry Neurologic: PERRL, EOMI, accommodation nl, no face palsy, no dysarthria Psychiatric: A+Ox3, euthymic affect Results & Data Results & Data ([facility]) Vital Signs (Past 12 Hours) Vital Signs Temp Pulse Pulse Resp BP BP Pulse Ox 09/17/21 20:40 100 H 43 H 163/91 H 92 09/17/21 20:30 122 H 50 H 155/102 H 94 09/17/21 20:26 130 H 43 H 145/100 H 91 09/17/21 20:21 91 09/17/21 20:20 118 H 47 H 128/90 94 09/17/21 20:19 120 H 47 H 131/92 94 09/17/21 20:14 98 H 40 H 131/77 94 09/17/21 20:10 89 42 H 131/77 94 09/17/21 20:00 148 H 40 H 95 09/17/21 19:53 113 H 38 H 94 09/17/21 19:50 156 H 39 H 89 L 09/17/21 19:48 155 H 19 09/17/21 19:47 177/125 H 09/17/21 19:30 118 H 48 H 94 09/17/21 19:28 92 H 33 H 137/88 94 09/17/21 19:23 161 H 34 H 199/131 H 96 09/17/21 19:20 158 H 47 H 98 09/17/21 19:15 161 H 54 H 183/128 H 98 09/17/21 19:10 162 H 49 H 97 09/17/21 19:00 163 H 35 H 97 09/17/21 18:50 162 H 24 96 09/17/21 18:40 163 H 26 H 96 09/17/21 18:39 161 H 50 H 97 09/17/21 18:25 36.7 C 160 H 32 H 210/134 H 90 09/17/21 18:23 36.8 C 32 H Coding Level of Care Code Critical Care 1st 30-74 mins Diagnoses Metastatic malignant neoplasm to lung C78.00 Respiratory failure with hypoxia J96.91 Ascites R18.8 Pleural effusion J90 Acute hyponatremia E87.1 Pulmonary emboli I26.99 Atrial fibrillation with RVR I48.91
--- NOTE | 2021-09-17 21:55 | History & Physical Report ---
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 Acute Hypoxic Respiratory Failure -- with tachypnea, mild respiratory acidosis on VBG * Per family, has recently required ~3L at baseline at home * Likely multifactorial: progression of very large R lung lung neuroendocrine carcinoma w/ metastases, possible bronchial obstruction from the mass, segmental / subsegmental PEs, small/moderate pleural effusions, mucus plugging, possible acute HF in setting of AFib w/ RVR + elevated BNP -- see individual plans below for further management * ED physician spoke with pulmonology/cloth covered helmet puller: no indication for emergent thoracentesis * No direct evidence of infectious contribution at this time -- COVID19 neg, procal neg, no leukocytosis. Continue Zosyn for now, may consider d/c or de- escalation tomorrow. * Continue BiPAP management per ICU * Mucociliary clearance: vibratory vest, hypertonic saline nebs, albuterol * Lasix x 1 given in ICU * Consider bronchoscopy / palliative surgical intervention if worsening pending further discussions w/ patient, family * Patient is FULL CODE and would like intubated if needed Atrial Flutter w/ RVR -- improving * New diagnosis in setting of AHRF, worsening cancer * Found to be in RVR in the ED, rates around 160s -- s/p adenosine x 1, diltiazem gtt * Continue diltiazem gtt -- rates improving with such * Maintain K > 4, Mg > 2 * Continue telemetry Concern for Pulmonary Emboli * In setting of diffusely metastatic disease, as outlined below * CTA-PE demonstrating concern for "equivocal segmental and subsegmental pulmonary emboli of the LLL", however may also be artifact * Thrombus in L subclavian vein, which is new, noted * Continue heparin gtt started in ED * Transition to SQ/PO alternative when appropriate Subclavian Vein Thrombus * CTA-Chest revealing "3.5cm thrombus of the proximal L subclavian vein", new from prior study * Heparin gtt ongoing, as above Hyponatremia * Na 123 on arrival, was near-normal at beginning of month. 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 No e/o ALEX. * Fluid restriction < 1500cc/day * Monitor BMP - no more than +8 over 24 hours * sOsm, Abena, UCr, UOsm pending * Lasix x 1 given, as above Neuroendocrine Carcinoma with Diffuse Metastases * Patient with known history of large R-sided neuroendocrine carcinoma of the R lung, recently established with Dr. Deleon and had at least one chemotherapy treatment- name of medication unknown, notes unavailable at this time * CTA-Chest demonstrating progressively worsening metastatic disease in the chest, abdomen, mesenteries, bones, liver -- MRI from earlier this month also concerning for cerebral lesion * Prognosis is very guarded in setting of acute illness. He is at risk for deterioration. After thorough discussion w/ attending physician, patient would like chest compressions and intubation if required - full code. Mood Disorder * Continue mood stabilizers and anxiolytics when stabilized Code: Full Code Dispo: ICU Diet: NPO PPX: Hep gtt ongoing for suspected VTE (2) Respiratory failure with hypoxia: (3) Ascites: (4) Pleural effusion: (5) Acute hyponatremia: (6) Pulmonary emboli: (7) Atrial fibrillation with RVR: History of Present Illness Chief Complaint: acute hypoxic respiratory failure Primary Care Provider: Ester Lundy MD This is a 61-year-old male with a history of recently diagnosed metastatic small cell lung cancer and relatively new O2 requirement (3L at home) who presented to [facility] for evaluation of shortness of breath. History is obtained through patient, family, and review of existing records, which are limited, in our system. Patient reports that over the last 3 to 4 days, he has had progressively worsening shortness of breath. This is worse with lying down and exertion. He does endorse some coughing. At request of his oncologist, he had tried increasing his O2 to 6L (from 3), but unfortunately this did not help. His family said that he has been appearing more fatigued and ill-appearing over this time. He denies any fevers, chills, sweats, or pains. He did have a COVID-19 exposure with a family member approx. 14 days prior to his arrival here, per family, but has not had a COVID test. Unfortunately, his cancer diagnosis is new over the last 2-3 months. He follows with Dr. Deleon at [facility] and his last chemotherapy treatment was apparently 2-3 weeks ago (he does not know name of this and I do not have records available at this time). PET-CT obtained in early August did reveal a mass occupying >50% of R hemithorax along with extensive metastatic disease (LNs, pulmonary nodules, liver lesions, mesenteric carcinomatosis). MRI of the brain also showed R cerebellar lesion concerning for metastatic disease. His and sister did endorse that he wanted to "take a chance" with fighting his chemotherapy. His does say that he signed a [id number] document (type unknown at this time) that specified that he did NOT want a ventilator or compressions. On further discussion with attending physician (see attestation), patient did specify that he WOULD want intubated and cardiac resuscitation if needed. Socially - he lives at home with his . His sister is a nurse practitioner locally and provides input on his care. Per them, up until a few days ago / over the last few weeks, Shahram was still working regularly at home. 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 ED course: respiratory distress initially requiring OxyMask. Cardiac monitoring demonstrating atrial flutter w/ RVR at rate of 160. Given adenosine x 1 and subsequently started on cardizem drip. ED physician spoke with cloth covered helmet puller and CTA-Chest that was obtained was reviewed - significant for R lung collapse with worsening metastasis and mucus plugging; also significant for findings concerning for segmental and subsegmental pulmonary emboli of LLL. After CT, patient did have worsening respiratory status and was placed on BiPAP - VBG pH 7.35 / pCO2 57. His lactate was appreciated at 2.2. Heart rate and respiratory distress/oxygenation improved. Started on heparin for PEs/hypercoagulability. Given cefepime x 1. Admitted to ICU given concerns for respiratory demise. Allergies Allergy/AdvReac Type Severity Reaction Status Date / Time No Known Allergies Allergy Unverified 09/17/21 19:42 Home Medications Medication Instructions Recorded Confirmed Type codeine 10 mg-guaifenesin 100 mg/5 10 ml PO Q4H PRN 09/17/21 09/17/21 History mL oral liquid docusate sodium 100 mg capsule 100 mg PO DAILY 09/17/21 09/17/21 History (Stool Softener) ibuprofen 200 mg tablet (Motrin IB) 400 mg PO Q6H PRN 09/17/21 09/17/21 History lorazepam 0.5 mg tablet 0.5 mg PO HS PRN 09/17/21 09/17/21 History olanzapine 2.5 mg tablet 2.5 mg PO DIRECTED PRN 09/17/21 09/17/21 History ondansetron HCl 8 mg tablet 8 mg PO Q8H PRN 09/17/21 09/17/21 History quetiapine 25 mg tablet 25 mg PO BID 09/17/21 09/17/21 History tiotropium bromide 2.5 2 puff INHALATION QAM 09/17/21 09/17/21 History mcg/actuation mist for inhalation (Spiriva Respimat) Past Med/Surg History Medical History Lung cancer Surgical History No pertinent past surgical history Social History Smoking Status: Never smoker Preferred Language: Irish Communication Ability: Effective Match Up Person Required: No Current Living Situation: Spouse Feels Safe at Home: Yes Review of Systems Review of Systems: as per HPI Physical Exam Physical Exam: General: Ill-appearing 61-year-old gentleman, lying back in his hospital bed upon my arrival. He has a BiPAP on. HEENT: Unable to reliably assess for JVD. Trachea midline. Cardiac: Rapid rate, irregular rhythm. S1 and S2 are present without murmurs rubs or gallops. Pulmonary: Increased respiratory effort and rate with symmetric expansion of the chest. BiPAP in place. Diminished lung sounds appreciated on the right hemithorax. Auscultation of the left hemithorax does reveal scattered wheezes and crackles near the base. Abdominal: Abdomen does demonstrate mild ascites. Otherwise, nondistended and nontender. Extremities: There is trace peripheral edema in the lower extremities bilaterally Psychiatric: Alert and oriented Neurologic: Cranial nerves II through XII grossly intact. Moves all extremities symmetrically. Results & Data Results & Data ([facility]) Vital Signs (Past 12 Hours) Vital Signs Temp Pulse Pulse Resp BP BP Pulse Ox 09/17/21 21:22 93 H 35 H 94 09/17/21 20:40 100 H 43 H 163/91 H 92 09/17/21 20:30 122 H 50 H 155/102 H 94 09/17/21 20:26 130 H 43 H 145/100 H 91 09/17/21 20:21 91 09/17/21 20:20 118 H 47 H 128/90 94 09/17/21 20:19 120 H 47 H 131/92 94 09/17/21 20:14 98 H 40 H 131/77 94 09/17/21 20:10 89 42 H 131/77 94 09/17/21 20:00 148 H 40 H 95 09/17/21 19:53 113 H 38 H 94 09/17/21 19:50 156 H 39 H 89 L 09/17/21 19:48 155 H 19 09/17/21 19:47 177/125 H 09/17/21 19:30 118 H 48 H 94 09/17/21 19:28 92 H 33 H 137/88 94 09/17/21 19:23 161 H 34 H 199/131 H 96 09/17/21 19:20 158 H 47 H 98 09/17/21 19:15 161 H 54 H 183/128 H 98 09/17/21 19:10 162 H 49 H 97 09/17/21 19:00 163 H 35 H 97 09/17/21 18:50 162 H 24 96 09/17/21 18:40 163 H 26 H 96 09/17/21 18:39 161 H 50 H 97 09/17/21 18:25 36.7 C 160 H 32 H 210/134 H 90 09/17/21 18:23 36.8 C 32 H Laboratory Results Laboratory Results WBC 3.96 K/uL (4.8-10.8) L 09/17/21 19:17 RBC 5.00 M/uL (4.7-6.1) 09/17/21 19:17 Hgb 12.2 g/dL (14.0-18.0) L 09/17/21 19:17 POC Hgb 13.6 g/dl (14.0-18.0) L 09/17/21 19:12 Hct 38.0 % (42-52) L 09/17/21 19:17 POC Hct 40 % (42-52) L 09/17/21 19:12 MCV 76.0 fL (80-100) L 09/17/21 19:17 MCH 24.4 pg (25-34) L 09/17/21 19:17 MCHC 32.1 g/dL (32-36) 09/17/21 19:17 RDW Std Deviation 42.6 fL (36.4-46.3) 09/17/21 19:17 RDW Coeff of Tristian 16.0 % (11.5-14.5) H 09/17/21 19:17 Plt Count 271 K/uL (130-400) 09/17/21 19:17 MPV 8.9 fL (7.4-10.4) 09/17/21 19:17 Immature Gran % (Auto) 0.0 % 09/17/21 19:17 Neut % (Auto) 81.3 % 09/17/21 19:17 Lymph % (Auto) 18.4 % 09/17/21 19:17 [place] % (Auto) 0.3 % 09/17/21 19:17 Eos % (Auto) 0.0 % 09/17/21 19:17 Baso % (Auto) 0.0 % 09/17/21 19:17 Neut # (Auto) 3.22 K/uL (1.4-6.5) 09/17/21 19:17 Lymph # (Auto) 0.73 K/uL (1.2-3.4) L 09/17/21 19:17 [place] # (Auto) 0.01 K/uL (0.11-0.59) L 09/17/21 19:17 Eos # (Auto) 0.00 K/uL (0-0.5) 09/17/21 19:17 Baso # (Auto) 0.00 K/uL (0-0.2) 09/17/21 19:17 Immature Gran # (Auto) 0.00 K/uL (0.00-0.02) 09/17/21 19:17 PT 11.9 Seconds (9.0-12.0) 09/17/21 19:17 INR 1.2 (0.9-1.1) H 09/17/21 19:17 APTT 26.5 Seconds (21.0-31.0) 09/17/21 19:17 PTT Ratio 1.0 09/17/21 19:17 VBG pH 7.35 (7.36-7.41) L 09/17/21 19:17 VBG pCO2 57 mmHg (38-50) H 09/17/21 19:17 VBG pO2 82 mmHg 09/17/21 19:17 VBG HCO3 31 mmol/L 09/17/21 19:17 VBG O2 Saturation 95.8 % 09/17/21 19:17 VBG Base Excess 4.1 mEq/L 09/17/21 19:17 Barometric Pressure 730.2 mm/Hg 09/17/21 19:17 POC Sodium 122 mmol/L (135-144) L 09/17/21 19:12 Sodium 128 mmol/L (136-145) L 09/17/21 23:15 POC Potassium 3.6 mmol/L (3.3-5.0) 09/17/21 19:12 Potassium 3.4 mmol/L (3.5-5.1) L 09/17/21 23:15 POC Chloride 82 mmol/L (101-112) L 09/17/21 19:12 Chloride 85 mmol/L (98-107) L 09/17/21 23:15 Carbon Dioxide 30 mmol/L (21-32) 09/17/21 23:15 POC Total CO2 32 mmol/L (24-31) H 09/17/21 19:12 Anion Gap 13 (3-11) H 09/17/21 23:15 POC Anion Gap 13.0 mmol/L (16-25) L 09/17/21 19:12 POC BUN 12 mg/dl (7-18) 09/17/21 19:12 BUN 12 mg/dl (6-23) 09/17/21 23:15 Creatinine 0.44 mg/dl (0.6-1.4) L 09/17/21 23:15 POC Creatinine 0.5 mg/dl (0.6-1.3) L 09/17/21 19:12 Est Cr Clr Drug Dosing 192.7 ml/min 09/17/21 23:15 Est GFR ( Amer) 141.9 ml/min 09/17/21 23:15 Est GFR (Non-Af Amer) 122.4 ml/min 09/17/21 23:15 BUN/Creatinine Ratio 27.3 (10-20) H 09/17/21 23:15 Glucose 161 mg/dl (70-99(Fasting)) H 09/17/21 23:15 POC Glucose 161 mg/dl (70-99) H 09/17/21 23:22 POC Glucose (other) 170 mg/dl (70-99) H 09/17/21 19:12 Osmolality 263 mOsm/kg (280-300) L 09/17/21 19:17 Lactate 3.9 mmol/L (0.4-2.0) H* 09/17/21 21:25 Calcium 9.7 mg/dl (8.5-10.1) 09/17/21 23:15 POC Ioniz Calcium Bala 1.20 mmol/l (1.12-1.32) 09/17/21 19:12 Magnesium 1.9 mg/dl (1.7-2.4) 09/17/21 19:17 Total Bilirubin 0.6 mg/dl (0.2-1.0) 09/17/21 19:17 AST 17 U/L (13-39) 09/17/21 19:17 ALT 17 U/L (7-52) 09/17/21 19:17 Alkaline Phosphatase 110 U/L (34-104) H 09/17/21 19:17 Troponin I 0.04 ng/ml (0-0.04) 09/17/21 19:17 B-Natriuretic Peptide 701 pg/ml (0-100) H 09/17/21 19:17 Total Protein 7.0 gm/dl (6.0-8.3) 09/17/21 19:17 Albumin 3.6 gm/dl (3.4-5.0) 09/17/21 19:17 Globulin 3.4 gm/dl (2.5-4.0) 09/17/21 19:17 Albumin/Globulin Ratio 1.1 (0.9-2) 09/17/21 19:17 Procalcitonin 0.12 ng/ml (0-0.5) 09/17/21 19:17 Urine Color Yellow 09/17/21 20:57 Urine Appearance Clear (Clear) 09/17/21 20:57 Urine pH 6.5 (4.5-7.5) 09/17/21 20:57 Ur Specific [place] > 1.045 (1.000-1.030) H 09/17/21 20:57 Urine Protein 1+ (Negative) H 09/17/21 20:57 Urine Glucose (UA) Negative (Negative) 09/17/21 20:57 Urine Ketones Negative (Negative) 09/17/21 20:57 Urine Blood Trace (Negative) H 09/17/21 20:57 Urine Nitrite Negative (Negative) 09/17/21 20:57 Urine Bilirubin Negative (Negative) 09/17/21 20:57 Urine Urobilinogen Negative (Negative) 09/17/21 20:57 Ur Leukocyte Esterase Negative (Negative) 09/17/21 20:57 Urine WBC (Auto) 1-5 /hpf (0-5) 09/17/21 20:57 Urine RBC (Auto) 0-4 /hpf (0-4) 09/17/21 20:57 U Hyaline Cast (Auto) 1-5 /lpf (0-5) 09/17/21 20:57 U Epithel Cells (Auto) 20-30 /lpf (0-5) H 09/17/21 20:57 Urine Bacteria (Auto) Negative (Negative) 09/17/21 20:57 SARS-CoV-2 (PCR) NEGATIVE (Negative) 09/17/21 20:00 Influenza Type A (PCR) Negative (Neg) 09/17/21 20:00 Influenza Type B (PCR) Negative (Neg) 09/17/21 20:00 RSV (RT-PCR) Negative (Neg) 09/17/21 20:00 Impressions Chest CTA 09/17/21 18:50 CT angio chest PE protocol CT DOSE: 467.06 mGy.cm HISTORY: 61 years-old Male with ro PE. Acute shortness of breath TECHNIQUE: Multiple CTA images of the chest were obtained after the intravenous administration of 120 ml Optiray. Coronal and sagittal MIPS were obtained from the axial data set and were submitted for review. All measurements were obtained according to NASCET criteria. A dose lowering technique was utilized adhering to the principles of ALARA. COMPARISON: Head CT 08/31/2021, chest CT 07/18/2021 FINDINGS: CTA: Moderate cardiomegaly. No pericardial effusion. Moderate coronary artery calcifications. No thoracic aortic aneurysm or dissection. Atherosclerosis of the thoracic aortic arch and great vessels. There is a hypodense filling defect within the proximal left subclavian artery as seen on image 227 series 4 measuring up to 3.5 cm in craniocaudal dimension, new from the 07/18/2021 study. There is satisfactory opacification of the pulmonary arterial tree. The segmental and subsegmental branches are suboptimally visualized secondary to respiratory motion artifact. Cortical filling defects are noted within segmental and subsegmental branches of the left lower lobe. CT CHEST: No thyroid nodule. Pathologically enlarged mediastinal, hilar and supraclavicular lymph nodes redemonstrated. Small left with small to moderate right pleural effusions are new from prior. There is no pneumothorax. There are progressively worsened reticular nodular opacities with intralobular septal thickening throughout the left lung. Patchy nodular consolidative opacities are also new from prior. Complete opacification of the right lung obscures the patient's known right-sided pulmonary mass. Mucous plugging noted within the right mainstem bronchus. Multifocal hepatic metastasis with pathologic upper abdominal adenopathy again noted. Mesenteric carcinomatosis with increased amount of abdominal ascites. Increased size of the multifocal lytic osseous metastatic lesions, the largest measuring 3.1 cm within the lateral right third rib resulting in bony destruction. Lesions are also seen throughout the vertebral bodies and sternum. IMPRESSION: 1. Progressively worsened diffuse metastatic disease including lymphadenopathy of the chest and upper abdomen, with pulmonary, mesenteric, osteolytic bony and hepatic metastatic disease. 2. 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 3. No central pulmonary emboli identified. Equivocal segmental and subsegmental pulmonary emboli of the left lower lobe versus artifact from the respiratory motion. Correlation with lower extremity Doppler recommended. 4. Small left with small to moderate right pleural effusions are new from prior. 5. Peritoneal carcinomatosis with increased abdominal ascites. 6. Right mainstem mucous plugging with complete consolidation of the right lung. ACT 112: Negative or not required by law. The above report was generated using voice recognition software. It may contain grammatical, syntax or spelling errors. Electronically signed by: Alexys Reddy M.D. 09/17/2021 8:10 PM ECG Additional Comments: EKG per my interpretation with atrial flutter at 161bpm with 2:1 AV conduction, ST abnormality in lateral leads, I, AvL, V5-V6 Code Status & VTE Plan VTE Prophylaxis Plan VTE Prophylaxis will be ordered: Yes Critical Care Time 70 minutes of critical care time Supervising Physician Co-Signing Physician Notes Patient seen and examined, chart reviewed, case discussed with Dr. Laurent and I agree with the assessment and plan as above. Patient is an unfortunate 61yo male with recently diagnosed diffusely metastatic righ-sided neuroendocrine carcinoma of the lung presenting with respiratory decompensation, acute hypoxic respiratory failure progressive over the last several days. Patient afebrile Atrial flutter with 2:1 conduction, rates 150-160 in the ER Tachypneic with RR in 40's. Oxymask --> BiPAP 16/8, 50% FiO2 in the ER BP stable Labs and images reviewed noted above Assessment/Plan Patient was admitted to the MICU. Continued to be tachypneic on BiPAP. Had worsening of his mental state, became clammy/diaphoretic and less responsive. Patient was intubated for acute hypoxic respiratory failure, BiPAP failure, worsening mental state and persistent respiratory distress. Multifactorial to include large right sided tumor burden as well as mucus plugging vs endobronchial mass causing obstruction and collapse, pleural effusions and PE Albuterol, hypertonic saline, chest percussion therapy and aggressive pulmonary toilet Lasix x 1 given Possible bronchoscopy in AM per Pulmonary Zosyn for now Given patient's poor pulmonary condition have concern for prolonged intubation, difficulty liberating from ventilator. Will attempt to optimize as above. If endobronchial lesion is detected may need transfer to tertiary care facility for stenting Code Status and goals of care discussed with patient as well as family ( and sister). Patient has a living will which states DNR/DNI (per report from - no copy on file) which was completed prior to patient's recent cancer diagnosis. Patient states that he would want resuscitation efforts at this time to include intubation, mechanical ventilation and CPR. He is aware of the severity of his diagnosis. Patient FULL CODE at this time Resident Activity Tracking Resident Involvement: Resident Care Provided Care Provided: Adult [facility] Medicine
[2021-09-17 21:59] LABS: Appearance Urine Clear (Clear); Bacteria Urine Automated Negative (Negative); Bilirubin Urine Negative (Negative); Blood Urine Trace (Negative); Color Urine Yellow; Epithelial Cell Urine Auto 20-30 /lpf (0-5); Glucose Urine UA Negative (Negative); Ketones Urine Negative (Negative); Leukocyte Esterase Urine Negative (Negative); Nitrite Urine Negative (Negative); Protein Urine 1+ (Negative); RBC Urine Automated 0-4 /hpf (0-4); Specific Gravity Urine > 1.045 (1.000-1.030); Urobilinogen Urine Negative (Negative); pH Urine 6.5 (4.5-7.5)
[2021-09-17] MEDS ORDERED: ICU PROTOCOL FOR HYPERGLYCEMIA PRN (22:56)
[2021-09-17] MEDS ORDERED: FUROSEMIDE 40 MG/4 ML VIAL IV ONE ×2 (22:56→23:02)
[2021-09-17] MEDS ORDERED: QUEtiapine FUMARATE 25 MG TABLET PO SCH (22:56)
[2021-09-17] MEDS ORDERED: PIPERACILL/TAZOBAC CONSULT ACTIVE PRN (22:56)
[2021-09-17] MEDS ORDERED: PIPERACILLIN/TAZOBACTAM 3.375 GM in DEXTROSE 5% 100 ML IV ONE (23:15)
[2021-09-17] MEDS ORDERED: FLUARIX QUADRIVALENT 0.5 ML SYR IM ONE (23:35)
[2021-09-17] MEDS ORDERED: PROPOFOL IV EMULSION 10 MG/ML 100 ML VIAL IV ONE (23:40)
[2021-09-17 23:51] LABS: BUN Creatinine Ratio 27.3 (10-20); Calcium 9.7 mg/dl (8.5-10.1); Creatinine Clr Calc Pharmacy 192.7 ml/min; Est GFR (African American) 141.9 ml/min; Est GFR (Non-African American) 122.4 ml/min; Potassium 3.4 mmol/L (3.5-5.1)
[2021-09-18] MEDS ORDERED: NOREPINEPHRINE/D5W 8 MG/508 ML IV ONE (00:06)
[2021-09-18] MEDS: NOREPINEPHRINE/D5W 8 MG/508 ML BAG IV SCH ×2 (00:10→08:27)
--- NOTE | 2021-09-18 00:24 | Emergency Department Note ---
ED Visit Note Endotracheal Intubation Indication: Respiratory failure. The patient was on 100% oxygen via NRB prior to the procedure. Suction, airway equipment, RSI drugs, respiratory equipment, and appropriate personnel were prepared prior to the initiation of the procedure. A time out was taken. Induction was performed with etomidate and rocuronium. After observing the clinical benefit of the medications, the airway was easily visualized utilizing a glidescope. A 7.5 size ETT tube was placed atraumatically to 25 cm using standard technique. The cuff inflated without signs of malfunction. There was positive colormetric change, no gastric sounds, a good capnography waveform, and post procedure pulse oximetry was 95%. Post intubation sedation and paralysis was administered using propofol. Chest x-ray showed that the ET tube was at the noel and the ET tube was retracted 2 cm. .
[2021-09-18] MEDS ORDERED: fentaNYL citrate 2,500 MCG/250 ML BAG IV ONE (00:27)
--- NOTE | 2021-09-18 00:27 | Billing Data ---
Date of Service September 17, 2021 Coding Level of Care Code Critical Care 1st 30-74 mins Time Spent (min) 70 Comment critical care
[2021-09-18 00:39] LABS: iSTAT Allen Test Pass; iSTAT Arterial Blood Gas HCO3 34 meg/L (19-24); iSTAT Arterial Blood Gas pCO2 68 mmHg (35-46); iSTAT Arterial Blood Gas pH 7.31 (7.35-7.45); iSTAT Arterial Blood Gas pO2 201 mmHg (80-95); iSTAT Carbon Dioxide 36 mmol/L (24-31); iSTAT FiO2 100 %; iSTAT Site L Radial
[2021-09-18] MEDS ORDERED: MIDAZOLAM HCL 1 MG/ML 2ML VIAL ONE (00:47)
--- NOTE | 2021-09-18 01:03 | Procedure Note ---
Procedure Note Date of Service September 18, 2021 Note FEMORAL CENTRAL LINE PROCEDURE NOTE: Procedure: Femoral Central Line Placement Attending: Dr. Barillas Provider: DANY Canas Indication: Central Drug Administration, Poor Venous Access, Multiple Lab Draws Necessary, etc. Anesthesia: Lidocaine 1% Line placed emergently following rapid intubation and hypotension requiring vasopressor support. A time-out was completed verifying correct patient, procedure, site, positioning, and implants(s) or special equipment if applicable. Patients right groin was cleansed and draped in the typical sterile fashion using Chloraprep. The Femoral Vein and Femoral Artery were identified using ultrasound. The superficial tissue was anesthetized using 3 mL of 1% lidocaine without epinephrine under direct visualization with the ultrasound. After adequate anesthetization was achieved, the Femoral Vein was cannulated under direct ultrasound guidance using an introducer needle on a syringe. Good venous blood return was maintained prior to removal of syringe from introducer needle. Using Seldinger Technique, a guide wire was advanced through the introducer needle without resistance. The introducer needle was removed and ultrasound images were obtained of the guide wire within the Femoral Vein and saved to the patients medical record. A small incision was made in penetrating fashion at the guide wire insertion site utilizing an 11 blade scalpel. The dilator was advanced to the vessel without resistance. The dilator was exchanged for the triple lumen catheter which was advanced into the vessel without resistance. The guide wire was removed intact from the catheter without issue. Claves were placed on each catheter tip with confirmation of good blood flow from each lumen. Each port was easily flushed with sterile saline. The catheter was placed at the hub and sutured in place. BioPatch was applied to the catheter and a sterile Tegaderm dressing was applied over the catheter with careful attention to sterility. Patient tolerated procedure well. No immediate complications were met. Procedural Ultrasound Guidance: Procedure Date: 09/18/2021 Indication: Central venous catheter insertion Attending: Dr. Barillas Provider: DANY Canas Artery AND Vein visualized: Yes Compressible Vein: Yes Guidewire or Short Catheter seen in vein prior to dilation: Yes Line confirmed in Vein with ultrasound: Yes Coding CPT Codes Tubes, Drains, and Vasc Access - Tubes, Drains, and Vasc Access: [id number] Place catheter in vein superior or inferior vena cava ([id number]) Tubes, Drains, and Vasc Access - Tubes, Drains, and Vasc Access: [id number] Ultrasound Guidance For Vascular ([id number]) [facility] [place] Procedure Codes (Charges) Tubes, Drains, and Vasc Access Procedure 3: Tubes, Drains, and Vasc Access: [id number] Place catheter in vein superior or inferior vena cava Procedure 4: Tubes, Drains, and Vasc Access: [id number] Ultrasound Guidance For Vascular
--- NOTE | 2021-09-18 01:04 | Procedure Note ---
Procedure Note Date of Service September 18, 2021 Note ARTERIAL LINE PROCEDURE NOTE: Procedure: Arterial Line Placement Attending: Dr. Barillas Provider: DANY Canas Indication: Monitoring on Pressors Anesthesia: Lidocaine 1% Line placed emergently following rapid intubation and hypotension requiring vasopressor support. A time-out was completed verifying correct patient, procedure, site, positioning, and implant(s) or special equipment if applicable. Allens test was performed to ensure adequate perfusion. Patients left wrist was prepped and draped in the usual sterile fashion. Ultrasound guidance was used to aid needle placement. A 20g Arrow arterial line was introduced into the left radial artery. Catheter was threaded, and the needle was removed with appropriate blood return. Good waveform was observed. The patient tolerated the procedure well. Confirmation of placement with ultrasound. Blood Loss: Minimal Complications: None Procedural Ultrasound Guidance: Procedure Date: 09/18/2021 Indication: Arterial line insertion Attending: Dr. barillas Provider: DANY Canas Artery Identified: YES Line confirmed in Artery with ultrasound: Yes Complications: NONE Patient tolerated procedure: WELL Coding CPT Codes Tubes, Drains, and Vasc Access - Tubes, Drains, and Vasc Access: [id number] Place Catheter In Artery ([id number]) Tubes, Drains, and Vasc Access - Tubes, Drains, and Vasc Access: [id number] Ultrasound Guidance For Vascular ([id number]) [facility] [place] Procedure Codes (Charges) Tubes, Drains, and Vasc Access Procedure 1: Tubes, Drains, and Vasc Access: [id number] Place Catheter In Artery Procedure 2: Tubes, Drains, and Vasc Access: [id number] Ultrasound Guidance For Vascular
--- NOTE | 2021-09-18 01:04 | Communication Note ---
Date of Service: September 18, 2021 Patient was exhibiting worsening hypoxia, tachypnea and labored breathing. Patient stated that he felt very tired and was having to work harder to breathe. He was noted to be diaphoretic and had trouble completing sentences. Decision was made to proceed with emergent intubation and ED physician presented to the room and intubated the patient without complication. Repeat chest x-ray showed end of ET tube in the right mainstem which was reduced by 2 cm. Patient did become hypotensive with sedation and Levophed on was started. Propofol DC'd and started on fentanyl and Versed drips. Central line and arterial line were placed. ABG showed improvement in hypoxia and currently weaning vent settings. I did speak with the patient's and updated her on his clinical status. CRITICAL CARE TIME - I have personally spent 40 minutes of critical care time in the direct management of this patient. This is a life/limb threatening event. This includes time spent evaluating patient, direct bedside care, chart review, placing orders, interpretation of diagnostic studies, discussion with consultants, patient, and family members, as well as other required patient management activities. This time is exclusive of all separately billable procedures, and teaching time and separate from and in addition to any other critical care service time. Coding Level of Care Code Critical Care brooks addt'l 30 min
[2021-09-18] MEDS ORDERED: PROPOFOL BOLUS FROM BAG IV PRN (01:06)
[2021-09-18] MEDS ORDERED: STAT IV Infusion **Titration per Protocol STA ×6 (01:06→14:13)
[2021-09-18] MEDS ORDERED: MIDAZOLAM HCL 1 MG/ML 2ML VIAL IV STA (01:08)
[2021-09-18] MEDS ORDERED: POTASSIUM CHLORIDE 20 MEQ/15 ML UDC PO STA ×2 (01:12→06:41)
[2021-09-18] MEDS ORDERED: MIDAZOLAM HCL 125MG/250ML D5W ONE (01:12)
[2021-09-18] MEDS ORDERED: propofoL 1,000 MG/100 ML VIAL IV SCH (01:15)
[2021-09-18] MEDS ORDERED: fentaNYL citrate 2,500 MCG/250 ML BAG IV SCH (01:15)
[2021-09-18] MEDS ORDERED: MIDAZOLAM HCL 125 MG/250 ML BAG IV SCH (01:15)
[2021-09-18] MEDS: dilTIAZem HCL 125 MG in DEXTROSE 5% 100 ML IV SCH (01:34)
[2021-09-18] MEDS: MIDAZOLAM BOLUS FROM BAG IV PRN ×2 (02:00→09:01)
[2021-09-18] MEDS: VASOPRESSIN 20 UNITS in 0.9 % SODIUM CHLORIDE 100 ML IV SCH ×2 (02:01→08:28)
[2021-09-18] MEDS ORDERED: PHARMACY GLYCEMIC MGMT CONSULT PRN (03:12)
[2021-09-18] MEDS ORDERED: INSULIN ASPART PER UNIT SC SCH (04:00)
[2021-09-18 05:31] LABS: iSTAT Allen Test Pass; iSTAT Arterial Blood Gas HCO3 30 meg/L (19-24); iSTAT Arterial Blood Gas pCO2 38 mmHg (35-46); iSTAT Arterial Blood Gas pH 7.51 (7.35-7.45); iSTAT Arterial Blood Gas pO2 82 mmHg (80-95); iSTAT Carbon Dioxide 31 mmol/L (24-31); iSTAT FiO2 50 %; iSTAT Site Art Line
[2021-09-18] MEDS: ALBUTEROL HFA 8 GM INHALER INH SCH (05:46)
[2021-09-18 05:48] LABS: Hematocrit (blood only) 33.3 % (42-52); Hemoglobin 10.6 g/dL (14.0-18.0); Lymphocytes # (auto) 0.94 K/uL (1.2-3.4); Lymphocytes % (auto) 30.2 %; Mean Corpuscular Hemoglobin 24.1 pg (25-34); Mean Corpuscular Hgb Conc 31.8 g/dL (32-36); Mean Corpuscular Volume 75.9 fL (80-100); Monocytes # (auto) 0.31 K/uL (0.11-0.59); Neutrophils # (auto) 1.86 K/uL (1.4-6.5); Neutrophils % (auto) 59.8 %; Platelet Count 253 K/uL (130-400); RDW Standard Deviation 42.9 fL (36.4-46.3); Red Blood Count 4.39 M/uL (4.7-6.1); White Blood Count 3.11 K/uL (4.8-10.8)
[2021-09-18 06:00] LABS: Partial Thromboplastin Ratio 1.6; Partial Thromboplastin Time 42.2 Seconds (21.0-31.0)
[2021-09-18 06:08] LABS: BUN Creatinine Ratio 29.4 (10-20); Calcium 9.2 mg/dl (8.5-10.1); Creatinine Clr Calc Pharmacy 166.3 ml/min; Est GFR (African American) 133.5 ml/min; Est GFR (Non-African American) 115.2 ml/min; Magnesium 1.9 mg/dl (1.7-2.4); Phosphorus 2.9 mg/dl (2.5-4.9); Potassium 3.3 mmol/L (3.5-5.1)
[2021-09-18] MEDS ORDERED: POTASSIUM CHLORIDE / WTR 20 MEQ/100 ML PLCT IV ONE (06:41)
[2021-09-18] MEDS ORDERED: MAGNESIUM SULFATE / D5W 1 GM/100 ML BAG IV ONE (06:41)
[2021-09-18] MEDS ORDERED: SODIUM CHLOR 7% 4 ML NEB NEB SCH ×2 (07:00)
--- NOTE | 2021-09-18 07:09 | XRay Report ---
XR chest 1V portable CLINICAL HISTORY: Respiratory failure. Small cell lung cancer. COMPARISON STUDY: Chest radiograph and chest CT September 17, 2021. FINDINGS: Tip of endotracheal tube is 3.5 cm above the noel. Tip of nasogastric tube is at least wi thin the distal body of the stomach. Complete opacification of the right hemithorax is again noted. T his is due to a small right pleural effusion with extensive right lung consolidation as shown on CT. There is a trace left pleural effusion. Left lung reticulonodular interstitial thickening is again no rancho. Lytic right third rib lesion is noted. IMPRESSION: 1. Tip of endotracheal tube 3.5 cm above the noel. 2. Persistent complete opacification of the right hemithorax, as described above. No change in reticu lonodular interstitial thickening within the left lung. This may reflect interstitial pulmonary edema with superimposed metastatic disease. 3. No pneumothorax. ACT 112: Negative or not required by law. Electronically signed by: Say Moreno M.D. 09/18/2021 7:08 AM
--- NOTE | 2021-09-18 07:14 | Hospitalist Progress Note ---
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 Comfort Measures -per discussion with family, patient status changed to DNR/DNI, comfort measures started discontinue other medications and monitoring. Family aware to contact nursing if they see signs of patient in distress. Patient on morphine drip resting comfortably. Morphine ativan ordered PRN. Patient transferred to med/surg. Acute Hypoxic Respiratory Failure -- with tachypnea, mild respiratory acidosis on VBG * Per family, has recently required ~3L at baseline at home * Likely multifactorial: progression of very large R lung lung neuroendocrine carcinoma w/ metastases, possible bronchial obstruction from the mass, segmental / subsegmental PEs, small/moderate pleural effusions, mucus plugging, possible acute HF in setting of AFib w/ RVR + elevated BNP -- see individual plans below for further management * ED physician spoke with pulmonology/ball sorter: no indication for emergent pleurocentesis * No direct evidence of infectious contribution at this time -- COVID19 neg, procal neg, no leukocytosis. Continue Zosyn for now, may consider d/c or de- escalation tomorrow. * Continue BiPAP management per ICU * Mucociliary clearance: vibratory vest, hypertonic saline nebs, albuterol * Lasix x 1 given in ICU *Patient was intubated in ICU, sedated started on pressors. Pulmonology attempted bronchoscopy, right bronchi collapsed unable to stent here, family states patient would not want aggressive measures done. *After discussion with family, code status changed to DNR/DNI, moved to comfort measures, other medications discontinued Atrial Flutter w/ RVR -- improving * New diagnosis in setting of AHRF, worsening cancer * Found to be in RVR in the ED, rates around 160s -- s/p adenosine x 1, diltiazem gtt * Continue diltiazem gtt -- rates improving with such * Maintain K > 4, Mg > 2 * Patient moved to comfort measures, other medications and monitoring d/c'd Concern for Pulmonary Emboli * In setting of diffusely metastatic disease, as outlined below * CTA-PE demonstrating concern for "equivocal segmental and subsegmental pulmonary emboli of the LLL", however may also be artifact * Thrombus in L subclavian vein, which is new, noted * Continue heparin gtt started in ED * Patient moved to comfort measures, heparin continued. Subclavian Vein Thrombus * CTA-Chest revealing "3.5cm thrombus of the proximal L subclavian vein", new from prior study * Heparin gtt ongoing, as above Hyponatremia * Na 123 on arrival, was near-normal at beginning of month. 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 No e/o ALEX. * Fluid restriction < 1500cc/day * Monitor BMP - no more than +8 over 24 hours * sOsm, Abena, UCr, UOsm pending * Lasix x 1 given, as above * Patient moved to comfort measures, will no longer monitor labs Neuroendocrine Carcinoma with Diffuse Metastases * Patient with known history of large R-sided neuroendocrine carcinoma of the R lung, recently established with Dr. Deleon and had at least one chemotherapy treatment- name of medication unknown, notes unavailable at this time * CTA-Chest demonstrating progressively worsening metastatic disease in the chest, abdomen, mesenteries, bones, liver -- MRI from earlier this month also concerning for cerebral lesion * Prognosis is very guarded in setting of acute illness. He is at risk for deterioration. After thorough discussion w/ attending physician, patient would like chest compressions and intubation if required - full code. * patient later intubated. Pulmonology found right bronchi collapsed, unable to stent. Per discussion with family, estimate poor prognosis, status changed to DNR/DNI comfort measures only Mood Disorder *patient moved to comfort measures, all other medication d/c'd Code: DNR/DNI Dispo: med/surg Diet: diet as tolerated PPX: Hep gtt ongoing for suspted VTE (2) Respiratory failure with hypoxia: (3) Ascites: (4) Pleural effusion: (5) Acute hyponatremia: (6) Pulmonary emboli: (7) Atrial fibrillation with RVR: Admission and Anticipated Discharge Date Admission Date: September 17, 2021 Supervising Physician Co-Signing Physician Notes Attending attestation Pt seen and examined in concert with Dr. Velasquez. In agreement with the documented findings as noted in the resident documentation with any exceptions or additions as noted here. Patient sedated and intubated on ventilator. Sister and spouse at bedside. On examination, coarse breath sounds and transmitted breath sounds throughout, tachycardic. No apparent signs of agitation, minimal response to voice, touch. AHRF in the setting of R sided neuroendocrine tumor with mets - transitioning to comfort measures after discussion with the family including review of current medical progress, interventions and available supports for a total of 35 minutes. Morphine IV and Roxicodone PO for control of air hunger, ativan for agitation. Family support. Else see resident documentation as noted. Subjective 61yo Male here with extensive metastatic neuroendocrine lung cancer and desaturations on BIPAP in ED with new Aflutter, intubated sent to ICU. Patient was diagnosed 9 weeks ago, recieved 1 course of chemotherapy. At this time he is sedated, pulmonology attempted to stent open his right bronchi but it is completely collapsed. Family contacted, states patient would not was aggressive measures, denied sending patient to [facility], status changed to DNR DNI. Discussion was held with family, they agree with comfort measures. Patient was extubated, pressors discontinued, transferred to med/surg with family present. Family understands to alert staff if signs of pain, they understand morphine ativan will assist in pain control and feelings of air hunger. Review of Systems Review of Systems: Unobtainable due to reduced consciousness Physical Exam Constitutional: + obese and + mechanically ventilated ENMT: external ear and nose normal, oropharynx normal Neck: trachea midline, no thyromegaly Respiratory: Course breath sounds on left side, none on right side Cardiovascular: Rate/Rhythm: + tachycardic Heart Sounds: normal S1 and normal S2 Gastrointestinal (Abdomen): Inspection/Auscultation: abdomen normal to inspection Percussion/Palpation: abdomen soft Skin: no rashes, warm and dry Neurologic: + obtunded Results & Data Results & Data ([facility]) Vital Signs (Past 12 Hours) Vital Signs Temp Pulse Pulse Resp BP BP Pulse Ox 09/18/21 06:20 37.6 C H 84 28 H 94 01/30/22 06:10 37.7 C H 92 H 28 H 95 09/18/21 06:00 112/76 09/18/21 05:50 37.7 C H 80 28 H 93 09/18/21 05:40 37.7 C H 101 H 28 H 93 09/18/21 05:30 37.8 C H 96 H 28 H 93 09/18/21 05:00 37.8 C H 82 28 H 111/77 94 09/18/21 04:30 37.8 C H 90 28 H 94 09/18/21 04:00 119/78 09/18/21 03:54 89 30 H 97 09/18/21 03:40 37.7 C H 89 32 H 97 09/18/21 03:30 37.7 C H 89 32 H 97 09/18/21 03:20 37.7 C H 88 32 H 98 09/18/21 03:10 37.7 C H 88 35 H 98 09/18/21 03:00 37.7 C H 88 32 H 113/80 98 09/18/21 02:50 37.7 C H 90 32 H 97 09/18/21 02:40 37.7 C H 88 35 H 97 09/18/21 02:30 37.7 C H 88 32 H 96 09/18/21 02:20 37.6 C H 86 32 H 97 09/18/21 02:10 37.7 C H 88 28 H 98 09/18/21 02:00 37.6 C H 90 25 H 71/54 L 99 09/18/21 01:50 37.6 C H 88 32 H 97 09/18/21 01:40 37.6 C H 89 18 98 09/18/21 01:30 37.6 C H 94 H 32 H 97 09/18/21 01:20 37.5 C 91 H 32 H 96 09/18/21 01:10 37.5 C 112 H 28 H 98 09/18/21 01:01 37.5 C 92 H 28 H 81/59 L 93 09/18/21 01:00 37.5 C 81 32 H 98 09/18/21 00:50 37.4 C 103 H 32 H 96 09/18/21 00:45 37.4 C 95 H 32 H 139/92 96 09/18/21 00:40 37.4 C 109 H 28 H 97 09/18/21 00:30 37.5 C 93 H 32 H 97/72 L 92 09/18/21 00:25 103/73 09/18/21 00:21 115 H 32 H 100 09/18/21 00:20 37.5 C 126 H 28 H 104/75 99 09/18/21 00:15 37.6 C H 149 H 28 H 90/73 L 99 09/18/21 00:11 37.6 C H 146 H 25 H 73/45 L 96 09/18/21 00:10 37.6 C H 159 H 24 96 09/18/21 00:06 37.6 C H 154 H 25 H 46/37 L 95 09/18/21 00:03 37.6 C H 154 H 28 H 83/45 L 94 09/18/21 00:00 37.6 C H 154 H 28 H 93 09/17/21 23:59 37.6 C H 155 H 28 H 68/47 L 92 09/17/21 23:50 37.6 C H 144 H 11 L 95 09/17/21 23:45 37.6 C H 116 H 46 H 134/82 96 09/17/21 23:40 37.6 C H 104 H 44 H 96 09/17/21 23:31 37.6 C H 83 47 H 146/81 H 94 09/17/21 23:30 37.6 C H 91 H 47 H 94 09/17/21 23:20 37.6 C H 84 49 H 87 L 09/17/21 23:10 37.6 C H 97 H 44 H 92 09/17/21 23:00 37.6 C H 99 H 45 H 143/95 H 92 09/17/21 22:56 103 H 09/17/21 22:50 37.6 C H 96 H 50 H 09/17/21 22:07 37 C 107 H 28 H 156/107 H 93 09/17/21 22:00 119 H 29 H 156/107 H 95 09/17/21 21:50 117 H 41 H 95 09/17/21 21:40 117 H 36 H 123/92 95 09/17/21 21:30 107 H 35 H 145/97 H 95 09/17/21 21:22 93 H 35 H 94 09/17/21 21:21 90 50 H 95 09/17/21 21:20 120 H 34 H 95 09/17/21 21:10 111 H 35 H 117/85 95 09/17/21 21:00 95 H 47 H 163/96 H 94 09/17/21 20:50 118 H 44 H 109/93 94 09/17/21 20:40 100 H 43 H 163/91 H 92 09/17/21 20:30 122 H 50 H 155/102 H 94 09/17/21 20:26 130 H 43 H 145/100 H 91 09/17/21 20:21 91 09/17/21 20:20 118 H 47 H 128/90 94 09/17/21 20:19 120 H 47 H 131/92 94 09/17/21 20:14 98 H 40 H 131/77 94 09/17/21 20:10 89 42 H 131/77 94 09/17/21 20:00 148 H 40 H 95 09/17/21 19:53 113 H 38 H 94 09/17/21 19:50 156 H 39 H 89 L 09/17/21 19:48 155 H 19 09/17/21 19:47 177/125 H 09/17/21 19:30 118 H 48 H 94 09/17/21 19:28 92 H 33 H 137/88 94 09/17/21 19:23 161 H 34 H 199/131 H 96 09/17/21 19:20 158 H 47 H 98 09/17/21 19:15 161 H 54 H 183/128 H 98 Laboratory Results 09/18/21 09/18/21 09/18/21 Range/Units 11:44 08:51 05:13 WBC (4.8-10.8) K/uL RBC (4.7-6.1) M/uL Hgb (14.0-18.0) g/dL POC Hgb (14.0-18.0) g/dl Hct (42-52) % POC Hct (42-52) % MCV (80-100) fL MCH (25-34) pg MCHC (32-36) g/dL RDW Std Deviation (36.4-46.3) fL RDW Coeff of Tristian (11.5-14.5) % Plt Count (130-400) K/uL MPV (7.4-10.4) fL Immature Gran % (Auto) % Neut % (Auto) % Lymph % (Auto) % Wilkes % (Auto) % Eos % (Auto) % Baso % (Auto) % Neut # (Auto) (1.4-6.5) K/uL Lymph # (Auto) (1.2-3.4) K/uL Wilkes # (Auto) (0.11-0.59) K/uL Eos # (Auto) (0-0.5) K/uL Baso # (Auto) (0-0.2) K/uL Immature Gran # (Auto) (0.00-0.02) K/uL PT (9.0-12.0) Seconds INR (0.9-1.1) APTT (21.0-31.0) Seconds PTT Ratio Sample Site POC pH (7.35-7.45) POC pCO2 (35-46) mmHg POC pO2 (80-95) mmHg POC HCO3 (19-24) tyrone/L POC Base Excess (-9-1.8) tyrone/L POC ABG O2 Sat (90-95) % Ian Test VBG pH (7.36-7.41) VBG pCO2 (38-50) mmHg VBG pO2 mmHg VBG HCO3 mmol/L VBG O2 Saturation % VBG Base Excess mEq/L Barometric Pressure mm/Hg O2 Delivery Device POC O2 Rate POC FiO2 % Tidal Volume PEEP POC Sodium (135-144) mmol/L Sodium (136-145) mmol/L POC Potassium (3.3-5.0) mmol/L Potassium (3.5-5.1) mmol/L POC Chloride (101-112) mmol/L Chloride (98-107) mmol/L Carbon Dioxide (21-32) mmol/L POC Total CO2 (24-31) mmol/L Anion Gap (3-11) POC Anion Gap (16-25) mmol/L POC BUN (7-18) mg/dl BUN (6-23) mg/dl Creatinine (0.6-1.4) mg/dl POC Creatinine (0.6-1.3) mg/dl Est Cr Clr Drug Dosing Est GFR ( Amer) ml/min Est GFR (Non-Af Amer) ml/min BUN/Creatinine Ratio (10-20) Glucose (70-99(Fasting)) mg/dl POC Glucose 156 H 162 H (70-99) mg/dl POC Glucose (other) (70-99) mg/dl Estimat Average Glucose Pending Hemoglobin A1c Pending Osmolality (280-300) mOsm/kg Lactate (0.4-2.0) mmol/L Calcium (8.5-10.1) mg/dl POC Ioniz Calcium Bala (1.12-1.32) mmol/l Phosphorus (2.5-4.9) mg/dl Magnesium (1.7-2.4) mg/dl Total Bilirubin (0.2-1.0) mg/dl AST (13-39) U/L ALT (7-52) U/L Alkaline Phosphatase (34-104) U/L Ammonia (18-72) umol/L Troponin I (0-0.04) ng/ml B-Natriuretic Peptide (0-100) pg/ml Total Protein (6.0-8.3) gm/dl Albumin (3.4-5.0) gm/dl Globulin (2.5-4.0) gm/dl Albumin/Globulin Ratio (0.9-2) Procalcitonin (0-0.5) ng/ml Urine Color Urine Appearance (Clear) Urine pH (4.5-7.5) Ur Specific [place] (1.000-1.030) Urine Protein (Negative) Urine Glucose (UA) (Negative) Urine Ketones (Negative) Urine Blood (Negative) Urine Nitrite (Negative) Urine Bilirubin (Negative) Urine Urobilinogen (Negative) Ur Leukocyte Esterase (Negative) Urine WBC (Auto) (0-5) /hpf Urine RBC (Auto) (0-4) /hpf U Hyaline Cast (Auto) (0-5) /lpf U Epithel Cells (Auto) (0-5) /lpf Urine Bacteria (Auto) (Negative) Urine Osmolality (500-800) mOsm/kg Ur Random Sodium mmol/L Nasal Screen MRSA (PCR) (Negative) SARS-CoV-2 (PCR) (Negative) Influenza Type A (PCR) (Neg) Influenza Type B (PCR) (Neg) RSV (RT-PCR) (Neg) 09/18/21 09/18/21 09/18/21 Range/Units 05:13 05:13 05:13 WBC 3.11 L (4.8-10.8) K/uL RBC 4.39 L (4.7-6.1) M/uL Hgb 10.6 L (14.0-18.0) g/dL POC Hgb (14.0-18.0) g/dl Hct 33.3 L (42-52) % POC Hct (42-52) % MCV 75.9 L (80-100) fL MCH 24.1 L (25-34) pg MCHC 31.8 L (32-36) g/dL RDW Std Deviation 42.9 (36.4-46.3) fL RDW Coeff of Tristian 16.0 H (11.5-14.5) % Plt Count 253 (130-400) K/uL MPV 9.0 (7.4-10.4) fL Immature Gran % (Auto) 0.0 % Neut % (Auto) 59.8 % Lymph % (Auto) 30.2 % Wilkes % (Auto) 10.0 % Eos % (Auto) 0.0 % Baso % (Auto) 0.0 % Neut # (Auto) 1.86 (1.4-6.5) K/uL Lymph # (Auto) 0.94 L (1.2-3.4) K/uL Wilkes # (Auto) 0.31 (0.11-0.59) K/uL Eos # (Auto) 0.00 (0-0.5) K/uL Baso # (Auto) 0.00 (0-0.2) K/uL Immature Gran # (Auto) 0.00 (0.00-0.02) K/uL PT (9.0-12.0) Seconds INR (0.9-1.1) APTT 42.2 H (21.0-31.0) Seconds PTT Ratio 1.6 Sample Site POC pH (7.35-7.45) POC pCO2 (35-46) mmHg POC pO2 (80-95) mmHg POC HCO3 (19-24) tyrone/L POC Base Excess (-9-1.8) tyrone/L POC ABG O2 Sat (90-95) % Ian Test VBG pH (7.36-7.41) VBG pCO2 (38-50) mmHg VBG pO2 mmHg VBG HCO3 mmol/L VBG O2 Saturation % VBG Base Excess mEq/L Barometric Pressure mm/Hg O2 Delivery Device POC O2 Rate POC FiO2 % Tidal Volume PEEP POC Sodium (135-144) mmol/L Sodium 124 L (136-145) mmol/L POC Potassium (3.3-5.0) mmol/L Potassium 3.3 L (3.5-5.1) mmol/L POC Chloride (101-112) mmol/L Chloride 84 L (98-107) mmol/L Carbon Dioxide 29 (21-32) mmol/L POC Total CO2 (24-31) mmol/L Anion Gap 11 (3-11) POC Anion Gap (16-25) mmol/L POC BUN (7-18) mg/dl BUN 15 (6-23) mg/dl Creatinine 0.51 L (0.6-1.4) mg/dl POC Creatinine (0.6-1.3) mg/dl Est Cr Clr Drug Dosing 166.3 Est GFR ( Amer) 133.5 ml/min Est GFR (Non-Af Amer) 115.2 ml/min BUN/Creatinine Ratio 29.4 H (10-20) Glucose 183 H (70-99(Fasting)) mg/dl POC Glucose (70-99) mg/dl POC Glucose (other) (70-99) mg/dl Estimat Average Glucose Hemoglobin A1c Osmolality (280-300) mOsm/kg Lactate (0.4-2.0) mmol/L Calcium 9.2 (8.5-10.1) mg/dl POC Ioniz Calcium Bala (1.12-1.32) mmol/l Phosphorus 2.9 (2.5-4.9) mg/dl Magnesium 1.9 (1.7-2.4) mg/dl Total Bilirubin (0.2-1.0) mg/dl AST (13-39) U/L ALT (7-52) U/L Alkaline Phosphatase (34-104) U/L Ammonia (18-72) umol/L Troponin I (0-0.04) ng/ml B-Natriuretic Peptide (0-100) pg/ml Total Protein (6.0-8.3) gm/dl Albumin (3.4-5.0) gm/dl Globulin (2.5-4.0) gm/dl Albumin/Globulin Ratio (0.9-2) Procalcitonin (0-0.5) ng/ml Urine Color Urine Appearance (Clear) Urine pH (4.5-7.5) Ur Specific [place] (1.000-1.030) Urine Protein (Negative) Urine Glucose (UA) (Negative) Urine Ketones (Negative) Urine Blood (Negative) Urine Nitrite (Negative) Urine Bilirubin (Negative) Urine Urobilinogen (Negative) Ur Leukocyte Esterase (Negative) Urine WBC (Auto) (0-5) /hpf Urine RBC (Auto) (0-4) /hpf U Hyaline Cast (Auto) (0-5) /lpf U Epithel Cells (Auto) (0-5) /lpf Urine Bacteria (Auto) (Negative) Urine Osmolality (500-800) mOsm/kg Ur Random Sodium mmol/L Nasal Screen MRSA (PCR) (Negative) SARS-CoV-2 (PCR) (Negative) Influenza Type A (PCR) (Neg) Influenza Type B (PCR) (Neg) RSV (RT-PCR) (Neg) 09/18/21 09/18/21 09/18/21 Range/Units 04:19 03:50 02:28 WBC (4.8-10.8) K/uL RBC (4.7-6.1) M/uL Hgb (14.0-18.0) g/dL POC Hgb (14.0-18.0) g/dl Hct (42-52) % POC Hct (42-52) % MCV (80-100) fL MCH (25-34) pg MCHC (32-36) g/dL RDW Std Deviation (36.4-46.3) fL RDW Coeff of Tristian (11.5-14.5) % Plt Count (130-400) K/uL MPV (7.4-10.4) fL Immature Gran % (Auto) % Neut % (Auto) % Lymph % (Auto) % Wilkes % (Auto) % Eos % (Auto) % Baso % (Auto) % Neut # (Auto) (1.4-6.5) K/uL Lymph # (Auto) (1.2-3.4) K/uL Wilkes # (Auto) (0.11-0.59) K/uL Eos # (Auto) (0-0.5) K/uL Baso # (Auto) (0-0.2) K/uL Immature Gran # (Auto) (0.00-0.02) K/uL PT (9.0-12.0) Seconds INR (0.9-1.1) APTT (21.0-31.0) Seconds PTT Ratio Sample Site Art Line POC pH 7.51 H* (7.35-7.45) POC pCO2 38 (35-46) mmHg POC pO2 82 (80-95) mmHg POC HCO3 30 H (19-24) tyrone/L POC Base Excess 7.0 H (-9-1.8) tyrone/L POC ABG O2 Sat 97.0 H (90-95) % Ian Test Pass VBG pH (7.36-7.41) VBG pCO2 (38-50) mmHg VBG pO2 mmHg VBG HCO3 mmol/L VBG O2 Saturation % VBG Base Excess mEq/L Barometric Pressure mm/Hg O2 Delivery Device Ventilator POC O2 Rate 32 POC FiO2 50 % Tidal Volume 350 PEEP 5 POC Sodium (135-144) mmol/L Sodium (136-145) mmol/L POC Potassium (3.3-5.0) mmol/L Potassium (3.5-5.1) mmol/L POC Chloride (101-112) mmol/L Chloride (98-107) mmol/L Carbon Dioxide (21-32) mmol/L POC Total CO2 31 (24-31) mmol/L Anion Gap (3-11) POC Anion Gap (16-25) mmol/L POC BUN (7-18) mg/dl BUN (6-23) mg/dl Creatinine (0.6-1.4) mg/dl POC Creatinine (0.6-1.3) mg/dl Est Cr Clr Drug Dosing Est GFR ( Amer) ml/min Est GFR (Non-Af Amer) ml/min BUN/Creatinine Ratio (10-20) Glucose (70-99(Fasting)) mg/dl POC Glucose (70-99) mg/dl POC Glucose (other) 207 H (70-99) mg/dl Estimat Average Glucose Hemoglobin A1c Osmolality (280-300) mOsm/kg Lactate (0.4-2.0) mmol/L Calcium (8.5-10.1) mg/dl POC Ioniz Calcium Bala (1.12-1.32) mmol/l Phosphorus (2.5-4.9) mg/dl Magnesium (1.7-2.4) mg/dl Total Bilirubin (0.2-1.0) mg/dl AST (13-39) U/L ALT (7-52) U/L Alkaline Phosphatase (34-104) U/L Ammonia (18-72) umol/L Troponin I (0-0.04) ng/ml B-Natriuretic Peptide (0-100) pg/ml Total Protein (6.0-8.3) gm/dl Albumin (3.4-5.0) gm/dl Globulin (2.5-4.0) gm/dl Albumin/Globulin Ratio (0.9-2) Procalcitonin (0-0.5) ng/ml Urine Color Urine Appearance (Clear) Urine pH (4.5-7.5) Ur Specific [place] (1.000-1.030) Urine Protein (Negative) Urine Glucose (UA) (Negative) Urine Ketones (Negative) Urine Blood (Negative) Urine Nitrite (Negative) Urine Bilirubin (Negative) Urine Urobilinogen (Negative) Ur Leukocyte Esterase (Negative) Urine WBC (Auto) (0-5) /hpf Urine RBC (Auto) (0-4) /hpf U Hyaline Cast (Auto) (0-5) /lpf U Epithel Cells (Auto) (0-5) /lpf Urine Bacteria (Auto) (Negative) Urine Osmolality (500-800) mOsm/kg Ur Random Sodium 67 mmol/L Nasal Screen MRSA (PCR) (Negative) SARS-CoV-2 (PCR) (Negative) Influenza Type A (PCR) (Neg) Influenza Type B (PCR) (Neg) RSV (RT-PCR) (Neg) 09/18/21 09/18/21 09/18/21 Range/Units 02:28 01:16 01:16 WBC (4.8-10.8) K/uL RBC (4.7-6.1) M/uL Hgb (14.0-18.0) g/dL POC Hgb (14.0-18.0) g/dl Hct (42-52) % POC Hct (42-52) % MCV (80-100) fL MCH (25-34) pg MCHC (32-36) g/dL RDW Std Deviation (36.4-46.3) fL RDW Coeff of Tristian (11.5-14.5) % Plt Count (130-400) K/uL MPV (7.4-10.4) fL Immature Gran % (Auto) % Neut % (Auto) % Lymph % (Auto) % Wilkes % (Auto) % Eos % (Auto) % Baso % (Auto) % Neut # (Auto) (1.4-6.5) K/uL Lymph # (Auto) (1.2-3.4) K/uL Wilkes # (Auto) (0.11-0.59) K/uL Eos # (Auto) (0-0.5) K/uL Baso # (Auto) (0-0.2) K/uL Immature Gran # (Auto) (0.00-0.02) K/uL PT (9.0-12.0) Seconds INR (0.9-1.1) APTT (21.0-31.0) Seconds PTT Ratio Sample Site POC pH (7.35-7.45) POC pCO2 (35-46) mmHg POC pO2 (80-95) mmHg POC HCO3 (19-24) tyrone/L POC Base Excess (-9-1.8) tyrone/L POC ABG O2 Sat (90-95) % Ian Test VBG pH (7.36-7.41) VBG pCO2 (38-50) mmHg VBG pO2 mmHg VBG HCO3 mmol/L VBG O2 Saturation % VBG Base Excess mEq/L Barometric Pressure mm/Hg O2 Delivery Device POC O2 Rate POC FiO2 % Tidal Volume PEEP POC Sodium (135-144) mmol/L Sodium (136-145) mmol/L POC Potassium (3.3-5.0) mmol/L Potassium (3.5-5.1) mmol/L POC Chloride (101-112) mmol/L Chloride (98-107) mmol/L Carbon Dioxide (21-32) mmol/L POC Total CO2 (24-31) mmol/L Anion Gap (3-11) POC Anion Gap (16-25) mmol/L POC BUN (7-18) mg/dl BUN (6-23) mg/dl Creatinine (0.6-1.4) mg/dl POC Creatinine (0.6-1.3) mg/dl Est Cr Clr Drug Dosing Est GFR ( Amer) ml/min Est GFR (Non-Af Amer) ml/min BUN/Creatinine Ratio (10-20) Glucose (70-99(Fasting)) mg/dl POC Glucose (70-99) mg/dl POC Glucose (other) (70-99) mg/dl Estimat Average Glucose Hemoglobin A1c Osmolality (280-300) mOsm/kg Lactate 2.6 H* (0.4-2.0) mmol/L Calcium (8.5-10.1) mg/dl POC Ioniz Calcium Bala (1.12-1.32) mmol/l Phosphorus (2.5-4.9) mg/dl Magnesium (1.7-2.4) mg/dl Total Bilirubin (0.2-1.0) mg/dl AST (13-39) U/L ALT (7-52) U/L Alkaline Phosphatase (34-104) U/L Ammonia 49.0 (18-72) umol/L Troponin I (0-0.04) ng/ml B-Natriuretic Peptide (0-100) pg/ml Total Protein (6.0-8.3) gm/dl Albumin (3.4-5.0) gm/dl Globulin (2.5-4.0) gm/dl Albumin/Globulin Ratio (0.9-2) Procalcitonin (0-0.5) ng/ml Urine Color Urine Appearance (Clear) Urine pH (4.5-7.5) Ur Specific [place] (1.000-1.030) Urine Protein (Negative) Urine Glucose (UA) (Negative) Urine Ketones (Negative) Urine Blood (Negative) Urine Nitrite (Negative) Urine Bilirubin (Negative) Urine Urobilinogen (Negative) Ur Leukocyte Esterase (Negative) Urine WBC (Auto) (0-5) /hpf Urine RBC (Auto) (0-4) /hpf U Hyaline Cast (Auto) (0-5) /lpf U Epithel Cells (Auto) (0-5) /lpf Urine Bacteria (Auto) (Negative) Urine Osmolality 461 L (500-800) mOsm/kg Ur Random Sodium mmol/L Nasal Screen MRSA (PCR) (Negative) SARS-CoV-2 (PCR) (Negative) Influenza Type A (PCR) (Neg) Influenza Type B (PCR) (Neg) RSV (RT-PCR) (Neg) 01/09/17/21 09/17/21 Range/Units 00:19 23:22 23:15 WBC (4.8-10.8) K/uL RBC (4.7-6.1) M/uL Hgb (14.0-18.0) g/dL POC Hgb (14.0-18.0) g/dl Hct (42-52) % POC Hct (42-52) % MCV (80-100) fL MCH (25-34) pg MCHC (32-36) g/dL RDW Std Deviation (36.4-46.3) fL RDW Coeff of [place]ist[place] (11.5-14.5) % Plt Count (130-400) K/uL MPV (7.4-10.4) fL Immature Gran % (Auto) % Neut % (Auto) % Lymph % (Auto) % Wilkes % (Auto) % Eos % (Auto) % Baso % (Auto) % Neut # (Auto) (1.4-6.5) K/uL Lymph # (Auto) (1.2-3.4) K/uL Wilkes # (Auto) (0.11-0.59) K/uL Eos # (Auto) (0-0.5) K/uL Baso # (Auto) (0-0.2) K/uL Immature Gran # (Auto) (0.00-0.02) K/uL PT (9.0-12.0) Seconds INR (0.9-1.1) APTT (21.0-31.0) Seconds PTT Ratio Sample Site L Radial POC pH 7.31 L (7.35-7.45) POC pCO2 68 H (35-46) mmHg POC pO2 201 H (80-95) mmHg POC HCO3 34 H (19-24) tyrone/L POC Base Excess 8.0 H (-9-1.8) tyrone/L POC ABG O2 Sat 100.0 H (90-95) % Ian Test Pass VBG pH (7.36-7.41) VBG pCO2 (38-50) mmHg VBG pO2 mmHg VBG HCO3 mmol/L VBG O2 Saturation % VBG Base Excess mEq/L Barometric Pressure mm/Hg O2 Delivery Device Ventilator POC O2 Rate 28 POC FiO2 100 % Tidal Volume 350 PEEP 8 POC Sodium (135-144) mmol/L Sodium 128 L (136-145) mmol/L POC Potassium (3.3-5.0) mmol/L Potassium 3.4 L (3.5-5.1) mmol/L POC Chloride (101-112) mmol/L Chloride 85 L (98-107) mmol/L Carbon Dioxide 30 (21-32) mmol/L POC Total CO2 36 H (24-31) mmol/L Anion Gap 13 H (3-11) POC Anion Gap (16-25) mmol/L POC BUN (7-18) mg/dl BUN 12 (6-23) mg/dl Creatinine 0.44 L (0.6-1.4) mg/dl POC Creatinine (0.6-1.3) mg/dl Est Cr Clr Drug Dosing 192.7 Est GFR ( Amer) 141.9 ml/min Est GFR (Non-Af Amer) 122.4 ml/min BUN/Creatinine Ratio 27.3 H (10-20) Glucose 161 H (70-99(Fasting)) mg/dl POC Glucose 161 H (70-99) mg/dl POC Glucose (other) (70-99) mg/dl Estimat Average Glucose Hemoglobin A1c Osmolality (280-300) mOsm/kg Lactate (0.4-2.0) mmol/L Calcium 9.7 (8.5-10.1) mg/dl POC Ioniz Calcium Bala (1.12-1.32) mmol/l Phosphorus (2.5-4.9) mg/dl Magnesium (1.7-2.4) mg/dl Total Bilirubin (0.2-1.0) mg/dl AST (13-39) U/L ALT (7-52) U/L Alkaline Phosphatase (34-104) U/L Ammonia (18-72) umol/L Troponin I (0-0.04) ng/ml B-Natriuretic Peptide (0-100) pg/ml Total Protein (6.0-8.3) gm/dl Albumin (3.4-5.0) gm/dl Globulin (2.5-4.0) gm/dl Albumin/Globulin Ratio (0.9-2) Procalcitonin (0-0.5) ng/ml Urine Color Urine Appearance (Clear) Urine pH (4.5-7.5) Ur Specific [place] (1.000-1.030) Urine Protein (Negative) Urine Glucose (UA) (Negative) Urine Ketones (Negative) Urine Blood (Negative) Urine Nitrite (Negative) Urine Bilirubin (Negative) Urine Urobilinogen (Negative) Ur Leukocyte Esterase (Negative) Urine WBC (Auto) (0-5) /hpf Urine RBC (Auto) (0-4) /hpf U Hyaline Cast (Auto) (0-5) /lpf U Epithel Cells (Auto) (0-5) /lpf Urine Bacteria (Auto) (Negative) Urine Osmolality (500-800) mOsm/kg Ur Random Sodium mmol/L Nasal Screen MRSA (PCR) (Negative) SARS-CoV-2 (PCR) (Negative) Influenza Type A (PCR) (Neg) Influenza Type B (PCR) (Neg) RSV (RT-PCR) (Neg) 09/17/21 09/17/21 09/17/21 Range/Units 22:51 21:25 20:57 WBC (4.8-10.8) K/uL RBC (4.7-6.1) M/uL Hgb (14.0-18.0) g/dL POC Hgb (14.0-18.0) g/dl Hct (42-52) % POC Hct (42-52) % MCV (80-100) fL MCH (25-34) pg MCHC (32-36) g/dL RDW Std Deviation (36.4-46.3) fL RDW Coeff of Tristian (11.5-14.5) % Plt Count (130-400) K/uL MPV (7.4-10.4) fL Immature Gran % (Auto) % Neut % (Auto) % Lymph % (Auto) % Wilkes % (Auto) % Eos % (Auto) % Baso % (Auto) % Neut # (Auto) (1.4-6.5) K/uL Lymph # (Auto) (1.2-3.4) K/uL Wilkes # (Auto) (0.11-0.59) K/uL Eos # (Auto) (0-0.5) K/uL Baso # (Auto) (0-0.2) K/uL Immature Gran # (Auto) (0.00-0.02) K/uL PT (9.0-12.0) Seconds INR (0.9-1.1) APTT (21.0-31.0) Seconds PTT Ratio Sample Site POC pH (7.35-7.45) POC pCO2 (35-46) mmHg POC pO2 (80-95) mmHg POC HCO3 (19-24) tyrone/L POC Base Excess (-9-1.8) tyrone/L POC ABG O2 Sat (90-95) % Ian Test VBG pH (7.36-7.41) VBG pCO2 (38-50) mmHg VBG pO2 mmHg VBG HCO3 mmol/L VBG O2 Saturation % VBG Base Excess mEq/L Barometric Pressure mm/Hg O2 Delivery Device POC O2 Rate POC FiO2 % Tidal Volume PEEP POC Sodium (135-144) mmol/L Sodium (136-145) mmol/L POC Potassium (3.3-5.0) mmol/L Potassium (3.5-5.1) mmol/L POC Chloride (101-112) mmol/L Chloride (98-107) mmol/L Carbon Dioxide (21-32) mmol/L POC Total CO2 (24-31) mmol/L Anion Gap (3-11) POC Anion Gap (16-25) mmol/L POC BUN (7-18) mg/dl BUN (6-23) mg/dl Creatinine (0.6-1.4) mg/dl POC Creatinine (0.6-1.3) mg/dl Est Cr Clr Drug Dosing Est GFR ( Amer) ml/min Est GFR (Non-Af Amer) ml/min BUN/Creatinine Ratio (10-20) Glucose (70-99(Fasting)) mg/dl POC Glucose (70-99) mg/dl POC Glucose (other) (70-99) mg/dl Estimat Average Glucose Hemoglobin A1c Osmolality (280-300) mOsm/kg Lactate 3.9 H* (0.4-2.0) mmol/L Calcium (8.5-10.1) mg/dl POC Ioniz Calcium Bala (1.12-1.32) mmol/l Phosphorus (2.5-4.9) mg/dl Magnesium (1.7-2.4) mg/dl Total Bilirubin (0.2-1.0) mg/dl AST (13-39) U/L ALT (7-52) U/L Alkaline Phosphatase (34-104) U/L Ammonia (18-72) umol/L Troponin I (0-0.04) ng/ml B-Natriuretic Peptide (0-100) pg/ml Total Protein (6.0-8.3) gm/dl Albumin (3.4-5.0) gm/dl Globulin (2.5-4.0) gm/dl Albumin/Globulin Ratio (0.9-2) Procalcitonin (0-0.5) ng/ml Urine Color Yellow Urine Appearance Clear (Clear) Urine pH 6.5 (4.5-7.5) Ur Specific [place] > 1.045 H (1.000-1.030) Urine Protein 1+ H (Negative) Urine Glucose (UA) Negative (Negative) Urine Ketones Negative (Negative) Urine Blood Trace H (Negative) Urine Nitrite Negative (Negative) Urine Bilirubin Negative (Negative) Urine Urobilinogen Negative (Negative) Ur Leukocyte Esterase Negative (Negative) Urine WBC (Auto) 1-5 (0-5) /hpf Urine RBC (Auto) 0-4 (0-4) /hpf U Hyaline Cast (Auto) 1-5 (0-5) /lpf U Epithel Cells (Auto) 20-30 H (0-5) /lpf Urine Bacteria (Auto) Negative (Negative) Urine Osmolality (500-800) mOsm/kg Ur Random Sodium mmol/L Nasal Screen MRSA (PCR) Negative (Negative) SARS-CoV-2 (PCR) (Negative) Influenza Type A (PCR) (Neg) Influenza Type B (PCR) (Neg) RSV (RT-PCR) (Neg) 09/17/21 09/17/21 09/17/21 Range/Units 20:00 19:17 19:17 WBC (4.8-10.8) K/uL RBC (4.7-6.1) M/uL Hgb (14.0-18.0) g/dL POC Hgb (14.0-18.0) g/dl Hct (42-52) % POC Hct (42-52) % MCV (80-100) fL MCH (25-34) pg MCHC (32-36) g/dL RDW Std Deviation (36.4-46.3) fL RDW Coeff of Tristian (11.5-14.5) % Plt Count (130-400) K/uL MPV (7.4-10.4) fL Immature Gran % (Auto) % Neut % (Auto) % Lymph % (Auto) % Wilkes % (Auto) % Eos % (Auto) % Baso % (Auto) % Neut # (Auto) (1.4-6.5) K/uL Lymph # (Auto) (1.2-3.4) K/uL [place] # (Auto) (0.11-0.59) K/uL Eos # (Auto) (0-0.5) K/uL Baso # (Auto) (0-0.2) K/uL Immature Gran # (Auto) (0.00-0.02) K/uL PT (9.0-12.0) Seconds INR (0.9-1.1) APTT (21.0-31.0) Seconds PTT Ratio Sample Site POC pH (7.35-7.45) POC pCO2 (35-46) mmHg POC pO2 (80-95) mmHg POC HCO3 (19-24) tyrone/L POC Base Excess (-9-1.8) tyrone/L POC ABG O2 Sat (90-95) % Ian Test VBG pH (7.36-7.41) VBG pCO2 (38-50) mmHg VBG pO2 mmHg VBG HCO3 mmol/L VBG O2 Saturation % VBG Base Excess mEq/L Barometric Pressure mm/Hg O2 Delivery Device POC O2 Rate POC FiO2 % Tidal Volume PEEP POC Sodium (135-144) mmol/L Sodium (136-145) mmol/L POC Potassium (3.3-5.0) mmol/L Potassium (3.5-5.1) mmol/L POC Chloride (101-112) mmol/L Chloride (98-107) mmol/L Carbon Dioxide (21-32) mmol/L POC Total CO2 (24-31) mmol/L Anion Gap (3-11) POC Anion Gap (16-25) mmol/L POC BUN (7-18) mg/dl BUN (6-23) mg/dl Creatinine (0.6-1.4) mg/dl POC Creatinine (0.6-1.3) mg/dl Est Cr Clr Drug Dosing Est GFR ( Amer) ml/min Est GFR (Non-Af Amer) ml/min BUN/Creatinine Ratio (10-20) Glucose (70-99(Fasting)) mg/dl POC Glucose (70-99) mg/dl POC Glucose (other) (70-99) mg/dl Estimat Average Glucose Hemoglobin A1c Osmolality 263 L (280-300) mOsm/kg Lactate (0.4-2.0) mmol/L Calcium (8.5-10.1) mg/dl POC Ioniz Calcium Bala (1.12-1.32) mmol/l Phosphorus (2.5-4.9) mg/dl Magnesium (1.7-2.4) mg/dl Total Bilirubin (0.2-1.0) mg/dl AST (13-39) U/L ALT (7-52) U/L Alkaline Phosphatase (34-104) U/L Ammonia (18-72) umol/L Troponin I (0-0.04) ng/ml B-Natriuretic Peptide 701 H (0-100) pg/ml Total Protein (6.0-8.3) gm/dl Albumin (3.4-5.0) gm/dl Globulin (2.5-4.0) gm/dl Albumin/Globulin Ratio (0.9-2) Procalcitonin (0-0.5) ng/ml Urine Color Urine Appearance (Clear) Urine pH (4.5-7.5) Ur Specific [place] (1.000-1.030) Urine Protein (Negative) Urine Glucose (UA) (Negative) Urine Ketones (Negative) Urine Blood (Negative) Urine Nitrite (Negative) Urine Bilirubin (Negative) Urine Urobilinogen (Negative) Ur Leukocyte Esterase (Negative) Urine WBC (Auto) (0-5) /hpf Urine RBC (Auto) (0-4) /hpf U Hyaline Cast (Auto) (0-5) /lpf U Epithel Cells (Auto) (0-5) /lpf Urine Bacteria (Auto) (Negative) Urine Osmolality (500-800) mOsm/kg Ur Random Sodium mmol/L Nasal Screen MRSA (PCR) (Negative) SARS-CoV-2 (PCR) NEGATIVE (Negative) Influenza Type A (PCR) Negative (Neg) Influenza Type B (PCR) Negative (Neg) RSV (RT-PCR) Negative (Neg) 09/17/21 09/17/21 09/17/21 Range/Units 19:17 19:17 19:17 WBC (4.8-10.8) K/uL RBC (4.7-6.1) M/uL Hgb (14.0-18.0) g/dL POC Hgb (14.0-18.0) g/dl Hct (42-52) % POC Hct (42-52) % MCV (80-100) fL MCH (25-34) pg MCHC (32-36) g/dL RDW Std Deviation (36.4-46.3) fL RDW Coeff of [place]ist[place] (11.5-14.5) % Plt Count (130-400) K/uL MPV (7.4-10.4) fL Immature Gran % (Auto) % Neut % (Auto) % Lymph % (Auto) % [place]kes % (Auto) % Eos % (Auto) % Baso % (Auto) % Neut # (Auto) (1.4-6.5) K/uL Lymph # (Auto) (1.2-3.4) K/uL [place] # (Auto) (0.11-0.59) K/uL Eos # (Auto) (0-0.5) K/uL Baso # (Auto) (0-0.2) K/uL Immature Gran # (Auto) (0.00-0.02) K/uL PT (9.0-12.0) Seconds INR (0.9-1.1) APTT (21.0-31.0) Seconds PTT Ratio Sample Site POC pH (7.35-7.45) POC pCO2 (35-46) mmHg POC pO2 (80-95) mmHg POC HCO3 (19-24) tyrone/L POC Base Excess (-9-1.8) tyrone/L POC ABG O2 Sat (90-95) % Ain Test VBG pH (7.36-7.41) VBG pCO2 (38-50) mmHg VBG pO2 mmHg VBG HCO3 mmol/L VBG O2 Saturation % VBG Base Excess mEq/L Barometric Pressure mm/Hg O2 Delivery Device POC O2 Rate POC FiO2 % Tidal Volume PEEP POC Sodium (135-144) mmol/L Sodium 123 L (136-145) mmol/L POC Potassium (3.3-5.0) mmol/L Potassium 3.5 (3.5-5.1) mmol/L POC Chloride (101-112) mmol/L Chloride 83 L (98-107) mmol/L Carbon Dioxide 29 (21-32) mmol/L POC Total CO2 (24-31) mmol/L Anion Gap 11 (3-11) POC Anion Gap (16-25) mmol/L POC BUN (7-18) mg/dl BUN 11 (6-23) mg/dl Creatinine 0.41 L (0.6-1.4) mg/dl POC Creatinine (0.6-1.3) mg/dl Est Cr Clr Drug Dosing Not Reportable Est GFR ( Amer) 146.1 ml/min Est GFR (Non-Af Amer) 126.0 ml/min BUN/Creatinine Ratio 26.8 H (10-20) Glucose 160 H (70-99(Fasting)) mg/dl POC Glucose (70-99) mg/dl POC Glucose (other) (70-99) mg/dl Estimat Average Glucose Hemoglobin A1c Osmolality (280-300) mOsm/kg Lactate 2.2 H* (0.4-2.0) mmol/L Calcium 9.5 (8.5-10.1) mg/dl POC Ioniz Calcium Bala (1.12-1.32) mmol/l Phosphorus (2.5-4.9) mg/dl Magnesium 1.9 (1.7-2.4) mg/dl Total Bilirubin 0.6 (0.2-1.0) mg/dl AST 17 (13-39) U/L ALT 17 (7-52) U/L Alkaline Phosphatase 110 H (34-104) U/L Ammonia (18-72) umol/L Troponin I 0.04 (0-0.04) ng/ml B-Natriuretic Peptide (0-100) pg/ml Total Protein 7.0 (6.0-8.3) gm/dl Albumin 3.6 (3.4-5.0) gm/dl Globulin 3.4 (2.5-4.0) gm/dl Albumin/Globulin Ratio 1.1 (0.9-2) Procalcitonin 0.12 (0-0.5) ng/ml Urine Color Urine Appearance (Clear) Urine pH (4.5-7.5) Ur Specific [place] (1.000-1.030) Urine Protein (Negative) Urine Glucose (UA) (Negative) Urine Ketones (Negative) Urine Blood (Negative) Urine Nitrite (Negative) Urine Bilirubin (Negative) Urine Urobilinogen (Negative) Ur Leukocyte Esterase (Negative) Urine WBC (Auto) (0-5) /hpf Urine RBC (Auto) (0-4) /hpf U Hyaline Cast (Auto) (0-5) /lpf U Epithel Cells (Auto) (0-5) /lpf Urine Bacteria (Auto) (Negative) Urine Osmolality (500-800) mOsm/kg Ur Random Sodium mmol/L Nasal Screen MRSA (PCR) (Negative) SARS-CoV-2 (PCR) (Negative) Influenza Type A (PCR) (Neg) Influenza Type B (PCR) (Neg) RSV (RT-PCR) (Neg) 09/17/21 09/17/21 09/17/21 Range/Units 19:17 19:17 19:17 WBC 3.96 L (4.8-10.8) K/uL RBC 5.00 (4.7-6.1) M/uL Hgb 12.2 L (14.0-18.0) g/dL POC Hgb (14.0-18.0) g/dl Hct 38.0 L (42-52) % POC Hct (42-52) % MCV 76.0 L (80-100) fL MCH 24.4 L (25-34) pg MCHC 32.1 (32-36) g/dL RDW Std Deviation 42.6 (36.4-46.3) fL RDW Coeff of [place]ist[place] 16.0 H (11.5-14.5) % Plt Count 271 (130-400) K/uL MPV 8.9 (7.4-10.4) fL Immature Gran % (Auto) 0.0 % Neut % (Auto) 81.3 % Lymph % (Auto) 18.4 % Wilkes % (Auto) 0.3 % Eos % (Auto) 0.0 % Baso % (Auto) 0.0 % Neut # (Auto) 3.22 (1.4-6.5) K/uL Lymph # (Auto) 0.73 L (1.2-3.4) K/uL Wilkes # (Auto) 0.01 L (0.11-0.59) K/uL Eos # (Auto) 0.00 (0-0.5) K/uL Baso # (Auto) 0.00 (0-0.2) K/uL Immature Gran # (Auto) 0.00 (0.00-0.02) K/uL PT 11.9 (9.0-12.0) Seconds INR 1.2 H (0.9-1.1) APTT 26.5 (21.0-31.0) Seconds PTT Ratio 1.0 Sample Site POC pH (7.35-7.45) POC pCO2 (35-46) mmHg POC pO2 (80-95) mmHg POC HCO3 (19-24) tyrone/L POC Base Excess (-9-1.8) tyrone/L POC ABG O2 Sat (90-95) % Ian Test VBG pH 7.35 L (7.36-7.41) VBG pCO2 57 H (38-50) mmHg VBG pO2 82 mmHg VBG HCO3 31 mmol/L VBG O2 Saturation 95.8 % VBG Base Excess 4.1 mEq/L Barometric Pressure 730.2 mm/Hg O2 Delivery Device POC O2 Rate POC FiO2 % Tidal Volume PEEP POC Sodium (135-144) mmol/L Sodium (136-145) mmol/L POC Potassium (3.3-5.0) mmol/L Potassium (3.5-5.1) mmol/L POC Chloride (101-112) mmol/L Chloride (98-107) mmol/L Carbon Dioxide (21-32) mmol/L POC Total CO2 (24-31) mmol/L Anion Gap (3-11) POC Anion Gap (16-25) mmol/L POC BUN (7-18) mg/dl BUN (6-23) mg/dl Creatinine (0.6-1.4) mg/dl POC Creatinine (0.6-1.3) mg/dl Est Cr Clr Drug Dosing Est GFR ( Amer) ml/min Est GFR (Non-Af Amer) ml/min BUN/Creatinine Ratio (10-20) Glucose (70-99(Fasting)) mg/dl POC Glucose (70-99) mg/dl POC Glucose (other) (70-99) mg/dl Estimat Average Glucose Hemoglobin A1c Osmolality (280-300) mOsm/kg Lactate (0.4-2.0) mmol/L Calcium (8.5-10.1) mg/dl POC Ioniz Calcium Bala (1.12-1.32) mmol/l Phosphorus (2.5-4.9) mg/dl Magnesium (1.7-2.4) mg/dl Total Bilirubin (0.2-1.0) mg/dl AST (13-39) U/L ALT (7-52) U/L Alkaline Phosphatase (34-104) U/L Ammonia (18-72) umol/L Troponin I (0-0.04) ng/ml B-Natriuretic Peptide (0-100) pg/ml Total Protein (6.0-8.3) gm/dl Albumin (3.4-5.0) gm/dl Globulin (2.5-4.0) gm/dl Albumin/Globulin Ratio (0.9-2) Procalcitonin (0-0.5) ng/ml Urine Color Urine Appearance (Clear) Urine pH (4.5-7.5) Ur Specific [place] (1.000-1.030) Urine Protein (Negative) Urine Glucose (UA) (Negative) Urine Ketones (Negative) Urine Blood (Negative) Urine Nitrite (Negative) Urine Bilirubin (Negative) Urine Urobilinogen (Negative) Ur Leukocyte Esterase (Negative) Urine WBC (Auto) (0-5) /hpf Urine RBC (Auto) (0-4) /hpf U Hyaline Cast (Auto) (0-5) /lpf U Epithel Cells (Auto) (0-5) /lpf Urine Bacteria (Auto) (Negative) Urine Osmolality (500-800) mOsm/kg Ur Random Sodium mmol/L Nasal Screen MRSA (PCR) (Negative) SARS-CoV-2 (PCR) (Negative) Influenza Type A (PCR) (Neg) Influenza Type B (PCR) (Neg) RSV (RT-PCR) (Neg) 09/17/21 Range/Units 19:12 WBC (4.8-10.8) K/uL RBC (4.7-6.1) M/uL Hgb (14.0-18.0) g/dL POC Hgb 13.6 L (14.0-18.0) g/dl Hct (42-52) % POC Hct 40 L (42-52) % MCV (80-100) fL MCH (25-34) pg MCHC (32-36) g/dL RDW Std Deviation (36.4-46.3) fL RDW Coeff of [place] (11.5-14.5) % Plt Count (130-400) K/uL MPV (7.4-10.4) fL Immature Gran % (Auto) % Neut % (Auto) % Lymph % (Auto) % Wilkes % (Auto) % Eos % (Auto) % Baso % (Auto) % Neut # (Auto) (1.4-6.5) K/uL Lymph # (Auto) (1.2-3.4) K/uL [place]kes # (Auto) (0.11-0.59) K/uL Eos # (Auto) (0-0.5) K/uL Baso # (Auto) (0-0.2) K/uL Immature Gran # (Auto) (0.00-0.02) K/uL PT (9.0-12.0) Seconds INR (0.9-1.1) APTT (21.0-31.0) Seconds PTT Ratio Sample Site POC pH (7.35-7.45) POC pCO2 (35-46) mmHg POC pO2 (80-95) mmHg POC HCO3 (19-24) tyrone/L POC Base Excess (-9-1.8) tyrone/L POC ABG O2 Sat (90-95) % Ian Test VBG pH (7.36-7.41) VBG pCO2 (38-50) mmHg VBG pO2 mmHg VBG HCO3 mmol/L VBG O2 Saturation % VBG Base Excess mEq/L Barometric Pressure mm/Hg O2 Delivery Device POC O2 Rate POC FiO2 % Tidal Volume PEEP POC Sodium 122 L (135-144) mmol/L Sodium (136-145) mmol/L POC Potassium 3.6 (3.3-5.0) mmol/L Potassium (3.5-5.1) mmol/L POC Chloride 82 L (101-112) mmol/L Chloride (98-107) mmol/L Carbon Dioxide (21-32) mmol/L POC Total CO2 32 H (24-31) mmol/L Anion Gap (3-11) POC Anion Gap 13.0 L (16-25) mmol/L POC BUN 12 (7-18) mg/dl BUN (6-23) mg/dl Creatinine (0.6-1.4) mg/dl POC Creatinine 0.5 L (0.6-1.3) mg/dl Est Cr Clr Drug Dosing Est GFR ( Amer) ml/min Est GFR (Non-Af Amer) ml/min BUN/Creatinine Ratio (10-20) Glucose (70-99(Fasting)) mg/dl POC Glucose (70-99) mg/dl POC Glucose (other) 170 H (70-99) mg/dl Estimat Average Glucose Hemoglobin A1c Osmolality (280-300) mOsm/kg Lactate (0.4-2.0) mmol/L Calcium (8.5-10.1) mg/dl POC Ioniz Calcium Bala 1.20 (1.12-1.32) mmol/l Phosphorus (2.5-4.9) mg/dl Magnesium (1.7-2.4) mg/dl Total Bilirubin (0.2-1.0) mg/dl AST (13-39) U/L ALT (7-52) U/L Alkaline Phosphatase (34-104) U/L Ammonia (18-72) umol/L Troponin I (0-0.04) ng/ml B-Natriuretic Peptide (0-100) pg/ml Total Protein (6.0-8.3) gm/dl Albumin (3.4-5.0) gm/dl Globulin (2.5-4.0) gm/dl Albumin/Globulin Ratio (0.9-2) Procalcitonin (0-0.5) ng/ml Urine Color Urine Appearance (Clear) Urine pH (4.5-7.5) Ur Specific [place] (1.000-1.030) Urine Protein (Negative) Urine Glucose (UA) (Negative) Urine Ketones (Negative) Urine Blood (Negative) Urine Nitrite (Negative) Urine Bilirubin (Negative) Urine Urobilinogen (Negative) Ur Leukocyte Esterase (Negative) Urine WBC (Auto) (0-5) /hpf Urine RBC (Auto) (0-4) /hpf U Hyaline Cast (Auto) (0-5) /lpf U Epithel Cells (Auto) (0-5) /lpf Urine Bacteria (Auto) (Negative) Urine Osmolality (500-800) mOsm/kg Ur Random Sodium mmol/L Nasal Screen MRSA (PCR) (Negative) SARS-CoV-2 (PCR) (Negative) Influenza Type A (PCR) (Neg) Influenza Type B (PCR) (Neg) RSV (RT-PCR) (Neg) Diagnostic Findings Chest CTA 09/17/21 18:50 CT angio chest PE protocol CT DOSE: 467.06 mGy.cm HISTORY: 61 years-old Male with ro PE. Acute shortness of breath TECHNIQUE: Multiple CTA images of the chest were obtained after the intravenous administration of 120 ml Optiray. Coronal and sagittal MIPS were obtained from the axial data set and were submitted for review. All measurements were obtained according to NASCET criteria. A dose lowering technique was utilized adhering to the principles of ALARA. COMPARISON: Head CT 08/31/2021, chest CT 07/18/2021 FINDINGS: CTA: Moderate cardiomegaly. No pericardial effusion. Moderate coronary artery calcifications. No thoracic aortic aneurysm or dissection. Atherosclerosis of the thoracic aortic arch and great vessels. There is a hypodense filling defect within the proximal left subclavian artery as seen on image 227 series 4 measuring up to 3.5 cm in craniocaudal dimension, new from the 07/18/2021 study. There is satisfactory opacification of the pulmonary arterial tree. The segmental and subsegmental branches are suboptimally visualized secondary to respiratory motion artifact. Cortical filling defects are noted within segmental and subsegmental branches of the left lower lobe. CT CHEST: No thyroid nodule. Pathologically enlarged mediastinal, hilar and supraclavicular lymph nodes redemonstrated. Small left with small to moderate right pleural effusions are new from prior. There is no pneumothorax. There are progressively worsened reticular nodular opacities with intralobular septal thickening throughout the left lung. Patchy nodular consolidative opacities are also new from prior. Complete opacification of the right lung obscures the patient's known right-sided pulmonary mass. Mucous plugging noted within the right mainstem bronchus. Multifocal hepatic metastasis with pathologic upper abdominal adenopathy again noted. Mesenteric carcinomatosis with increased amount of abdominal ascites. Increased size of the multifocal lytic osseous metastatic lesions, the largest measuring 3.1 cm within the lateral right third rib resulting in bony destruction. Lesions are also seen throughout the vertebral bodies and sternum. IMPRESSION: 1. Progressively worsened diffuse metastatic disease including lymphadenopathy of the chest and upper abdomen, with pulmonary, mesenteric, osteolytic bony and hepatic metastatic disease. 2. 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 3. No central pulmonary emboli identified. Equivocal segmental and subsegmental pulmonary emboli of the left lower lobe versus artifact from the respiratory motion. Correlation with lower extremity Doppler recommended. 4. Small left with small to moderate right pleural effusions are new from prior. 5. Peritoneal carcinomatosis with increased abdominal ascites. 6. Right mainstem mucous plugging with complete consolidation of the right lung. ACT 112: Negative or not required by law. The above report was generated using voice recognition software. It may contain grammatical, syntax or spelling errors. Electronically signed by: Alexys Reddy M.D. 09/17/2021 8:10 PM Chest X-Ray 09/18/21 07:00 XR chest 1V portable CLINICAL HISTORY: Respiratory failure. Small cell lung cancer. COMPARISON STUDY: Chest radiograph and chest CT September 17, 2021. FINDINGS: Tip of endotracheal tube is 3.5 cm above the noel. Tip of nasogastric tube is at least within the distal body of the stomach. Complete opa cification of the right hemithorax is again noted. This is due to a small right pleural effusion with extensive right lung consolidation as shown on CT. There is a trace left pleural effusion. Left lung reticulonodular interstitial thickening is again noted. Lytic right third rib lesion is noted. IMPRESSION: 1. Tip of endotracheal tube 3.5 cm above the noel. 2. Persistent complete opacification of the right hemithorax, as described above. No change in reticulonodular interstitial thickening within the left lung. This may reflect interstitial pulmonary edema with superimposed metastatic disease. 3. No pneumothorax. ACT 112: Negative or not required by law. Electronically signed by: Say Moreno M.D. 09/18/2021 7:08 AM Medications Administered Current Inpatient Medications Glycopyrrolate (Glycopyrrolate 0.2 Mg/Ml Vial) 0.2 mg IV Q4H PRN PRN Reason: Secretions or Pulm Congestion Stop: 10/18/21 12:53 Last Admin: 09/18/21 14:06 Dose: 0.2 mg Documented by: Lorazepam (Ativan) 0.5 mg in 1 mls @ 1 mls/min IV Q4H PRN PRN Reason: Anxiety/Agitation Stop: 10/18/21 12:53 Morphine Sulfate (Morphine Sulf/Nss) 250 mg in 250 mls @ 4 mls/hr IV .[id number] [facility]; Protocol Stop: 10/02/21 14:14 Last Titration: 09/18/21 17:30 Dose: 4 mg/hr, 4 mls/hr Documented by: Lorazepam (Lorazepam 0.5 Mg Tab) 0.5 mg PO Q4H PRN PRN Reason: Anxiety/Agitation Stop: 10/18/21 12:53 Morphine Sulfate (Morphine Sulfate 5 Mg/0.25 Ml Udp) 5 mg PO Q3H PRN PRN Reason: Pain or Respiratory Distress Stop: 10/02/21 12:53 Last Admin: 09/18/21 13:22 Dose: 5 mg Documented by: Morphine Sulfate (Morphine Sulfate 2 Mg/Ml Carp) 2 mg IV Q4H PRN PRN Reason: Pain or Respiratory Distress Stop: 10/02/21 12:53 Last Admin: 09/18/21 14:07 Dose: 2 mg Documented by: Ondansetron HCl (Ondansetron Inj 2 Mg/Ml 2 Ml Vial) 4 mg IV Q4H PRN PRN Reason: Nausea &/or Vomiting Stop: 10/18/21 12:53 Ondansetron HCl (Ondansetron 4 Mg Od Tab) 4 mg SL Q4H PRN PRN Reason: Nausea &/or Vomiting Stop: 10/18/21 12:53 Resident Activity Tracking Resident Involvement: Resident Care Provided Care Provided: Adult Hospital Medicine
[2021-09-18] MEDS: ALBUT/IPRATROP 3MG/0.5MG NEB 3 ML VIAL NEB SCH ×3 (08:04→16:51)
[2021-09-18] MEDS: PIPERACILLIN/TAZOBACTAM 3.375 GM in DEXTROSE 5% 100 ML IV SCH ×2 (08:07→17:14)
--- NOTE | 2021-09-18 08:14 | XRay Report ---
XR chest 1V portable CLINICAL HISTORY: POST INTUBATION COMPARISON STUDY: Chest radiograph and chest CT performed earlier today;. FINDINGS: Tip of the endotracheal tube is at the origin of the right mainstem bronchus. Subsequent ch est radiograph showed repositioning of the endotracheal tube. Complete opacification of the right hem ithorax is again noted. Reticulonodular interstitial thickening within the left lung is noted. There is no pneumothorax. Lytic right third rib lesion is noted. Tip of endotracheal tube is at least withi n the body of the stomach. IMPRESSION: 1. Tip of endotracheal tube at the origin of the right mainstem bronchus. Subsequent chest radiograph showed repositioning of the endotracheal tube. 2. Persistent complete opacification of the right hemithorax and reticulonodular interstitial thicken ing within the left lung. ACT 112: Negative or not required by law. Electronically signed by: Say Moreno M.D. 09/18/2021 8:13 AM
[2021-09-18] MEDS: INSULIN ASPART PER UNIT SC SCH ×3 (08:54→17:01)
[2021-09-18] MEDS: PHENYLEPHRINE HCL 20 MG in DEXTROSE 5% 500 ML IV SCH ×5 (08:56→15:01)
[2021-09-18] MEDS ORDERED: PANTOprazole 40 MG TAB PO SCH (09:00)
[2021-09-18] MEDS ORDERED: PANTOprazole 40 MG in SYRINGE 0 ML IV SCH (09:00)
[2021-09-18] MEDS ORDERED: DOCUSATE SODIUM 100 MG CAP PO SCH (09:00)
[2021-09-18] MEDS ORDERED: Nursing to Pharmacy Communication SCH (09:15)
[2021-09-18] MEDS ORDERED: AMIODARONE 150MG / 100ML D5W IV ONE (09:39)
[2021-09-18] MEDS ORDERED: AMIODARONE 360MG / 200ML D5W IV ONE (09:39)
[2021-09-18] MEDS ORDERED: 0.2 MICRON FILTER SET 1 EA IV ONE (09:54)
[2021-09-18] MEDS ORDERED: AMIODARONE IV BOLUS & DRIP IV STA (09:54)
[2021-09-18] MEDS ORDERED: AMIODARONE / D5W 150 MG/100 ML BAG IV STA (09:54)
[2021-09-18] MEDS ORDERED: DOCUSATE SODIUM SYRUP 100 MG/10 ML UDC GT SCH (10:00)
[2021-09-18] MEDS ORDERED: AMIODARONE / D5W 360 MG/200 ML BAG IV ONE (10:04)
--- NOTE | 2021-09-18 10:32 | Procedure Note ---
Procedure Note: Bronchoscopy Procedure Informed consent was obtained from the patient's over the phone as the patient is currently intubated and sedated. Risks and benefits of the procedure were explained and the patient's is agreeable with proceeding with procedure. Timeout was performed prior to the procedure. Patient was placed on 100% oxygen via the ventilator prior to introduction of the bronchoscope. The bronchoscope was introduced via the endotracheal tube. Endotracheal tube was observed approximately 3 cm above the noel. The tracheobronchial tree inspection was performed bilaterally. Right upper lobe appeared to be distorted and narrowed at the opening. The bronchus intermedius was completely collapsed and I was unable to pass the scope distally below the inferior edge of the right upper lobe orifice due to occlusion of the airway. No bleeding was seen. No obvious endobronchial lesion was noted. Bronchial washings were performed of the right bronchus intermedius region. 60 mL of saline was instilled into the right lower lobe and approximately 20 mL of fluid was aspirated back. The airways of the left tracheobronchial tree appeared to be open. The scope was then withdrawn. Patient was stable post bronchoscopy procedure. Patient's was updated over the phone about the findings on bronchoscopy.
--- NOTE | 2021-09-18 10:41 | Critical Care Progress Note ---
Date of Service September 18, 2021 Assessment & Plan (1) End of life care: (2) Respiratory failure with hypoxia: (3) Metastatic malignant neoplasm to lung: (4) Ascites: (5) Pleural effusion: (6) Acute hyponatremia: (7) Pulmonary emboli: (8) Atrial fibrillation with RVR: (9) Subclavian vein occlusion: (10) Collapse of right lung: Plan: Reason Critically Ill: 61-year-old male with recent diagnosis of large cell neuroendocrine tumor with progressively with large mass lesion involving greater than 50% of the right hemithorax presents to the ICU with new onset A. fib RVR and acute hypoxic respiratory failure requiring BiPAP. Complete consolidation of right lung, possible segmental and subsegmental PE of the left lower lobe, and progressively worsening metastatic disease including metastatic disease of the chest and upper abdomen, with pulmonary, mesenteric, osteolytic bony, and hepatic metastatic disease seen on CTA. Neuro - I had a long discussion with the patient's over the phone. We will continue propofol and fentanyl infusions at this time and then transition to morphine infusion once the patient is compassionately extubated to ensure comfort. Cardiac - Given the patient is currently hypotensive, will discontinue diltiazem. Will di scontinue Levophed initiate phenylephrine. Amiodarone bolus given and will initiate the drip. Once the family arrives and is ready, will discontinue drips and focus on comfort measures. There is a left subclavian vein thrombus likely due to mass compression, stasis and possible tumor emboli syndrome. The left hand also appears to be ischemic possibly from the left radial arterial catheter. The arterial catheter has been removed. 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 There is complete compression of the right bronchus intermedius and distal airways. There is also compression noted of the right upper lobe. He has a small to moderate sized right pleural effusion. There is lymphangitic carcinomatosis of the left lung. He has had rapid progression of cancer despite recent chemotherapy. I did have a discussion with Dr. Deleon who is the on-call oncologist and he noted that palliative measures and comfort measures at this time are warranted. The noted that transitioning to comfort measures would be the wishes of the patient. We will not pursue aggressive intervention such as bronchial stenting and transfer to a tertiary care center at this time. Irrespective of transfer, I suspect the patient's prognosis would be very poor even if an airway stent was successful in opening the right lung. GI - N.p.o. Metastasis to liverLFTs unremarkable. Patient does have ascites. RENAL/LYTES - Acute hyponatremiaunsure if this is SIADH as patient does have metastatic disease and lesion of the brain. - Strict I's and O's ENDO - No history of diabetes or thyroid disease HEME - H&H stable, monitor routine CBCs ID - No clear indication for infectious process at this time. Patient was started on empiric Zosyn due to right lobe obstruction/collapse. Blood cultures pending. LINES/IV ACCESS - Peripheral IVs DVT PROPHYLAXIS - Patient does have subclavian thrombus. Currently on heparin drip. CODE STATUS: DNR/DNI with transition to comfort measures Additional 39 minutes of critical care. I have personally spent 39 minutes of critical care time in the direct management of this patient. This is a life/limb threatening event. This includes time spent evaluating patient, direct bedside care, chart review, placing orders, interpretation of diagnostic studies, discussion with consultants, patie nt, and family members, as well as other required patient management activities. This time is exclusive of all separately billable procedures, and teaching time and separate from and in addition to any other critical care service time. Thank you for allowing us to participate in the care of this patient. Please refer to my attending physician's documentation for any further recommendations. Admission and Anticipated Discharge Date Admission Date: September 17, 2021 Subjective Patient was seen and examined. He was sedated and intubated. Currently on the ventilator. Levophed, vasopressin and diltiazem drips infusing. Left radial arterial line in place. Right femoral central line in place. Unresponsive to commands, but does move extremities spontaneously and withdraws to pain. Review of Systems Review of Systems: Unobtainable due to endotracheal tube and Unobtainable due to reduced consciousness Physical Exam Constitutional: WD/WN, vitals as above Eyes: PERRL, conjunctivae normal, anicteric sclerae ENMT: external ear and nose normal, oropharynx normal Neck: trachea midline, no thyromegaly Respiratory: + tachypneic and symmetric chest movement; no labored breathing, no cough and no stridor Auscultation: + crackles and + rhonchi; no wheezes Cardiovascular: Rate/Rhythm: + tachycardic and + irregularly irregular Heart Sounds: normal S1 and normal S2; no murmur Vessels: no JVD Extremities: no edema Left hand with purplish discoloration in the distal fingertips. Diminished pulses in the left radial artery. Left radial artery catheter in place. Gastrointestinal (Abdomen): normal bowel sounds, soft, nontender, no hepatosplenomegaly Musculoskeletal: no cyanosis or clubbing, extremities motor strength 5/5 Skin: no rashes, warm and dry Neurologic: PERRL, EOMI, accommodation nl, no face palsy, no dysarthria Psychiatric: A+Ox3, euthymic affect Results & Data Results & Data ([facility]) Vital Signs (Past 12 Hours) Vital Signs Temp Pulse Resp BP Pulse Ox 09/18/21 08:05 29 H 09/18/21 06:20 37.6 C H 84 28 H 94 09/18/21 06:10 37.7 C H 92 H 28 H 95 09/18/21 06:00 112/76 09/18/21 05:50 37.7 C H 80 28 H 93 09/18/21 05:40 37.7 C H 101 H 28 H 93 09/18/21 05:30 37.8 C H 96 H 28 H 93 09/18/21 05:00 37.8 C H 82 28 H 111/77 94 09/18/21 04:30 37.8 C H 90 28 H 94 09/18/21 04:00 119/78 09/18/21 03:54 89 30 H 97 09/18/21 03:40 37.7 C H 89 32 H 97 09/18/21 03:30 37.7 C H 89 32 H 97 09/18/21 03:20 37.7 C H 88 32 H 98 09/18/21 03:10 37.7 C H 88 35 H 98 09/18/21 03:00 37.7 C H 88 32 H 113/80 98 09/18/21 02:50 37.7 C H 90 32 H 97 09/18/21 02:40 37.7 C H 88 35 H 97 09/18/21 02:30 37.7 C H 88 32 H 96 09/18/21 02:20 37.6 C H 86 32 H 97 09/18/21 02:10 37.7 C H 88 28 H 98 09/18/21 02:00 37.6 C H 90 25 H 71/54 L 99 09/18/21 01:50 37.6 C H 88 32 H 97 09/18/21 01:40 37.6 C H 89 18 98 09/18/21 01:30 37.6 C H 94 H 32 H 97 09/18/21 01:20 37.5 C 91 H 32 H 96 09/18/21 01:10 37.5 C 112 H 28 H 98 09/18/21 01:01 37.5 C 92 H 28 H 81/59 L 93 09/18/21 01:00 37.5 C 81 32 H 98 09/18/21 00:50 37.4 C 103 H 32 H 96 09/18/21 00:45 37.4 C 95 H 32 H 139/92 96 09/18/21 00:40 37.4 C 109 H 28 H 97 09/18/21 00:30 37.5 C 93 H 32 H 97/72 L 92 09/18/21 00:25 103/73 09/18/21 00:21 115 H 32 H 100 09/18/21 00:20 37.5 C 126 H 28 H 104/75 99 09/18/21 00:15 37.6 C H 149 H 28 H 90/73 L 99 09/18/21 00:11 37.6 C H 146 H 25 H 73/45 L 96 09/18/21 00:10 37.6 C H 159 H 24 96 09/18/21 00:06 37.6 C H 154 H 25 H 46/37 L 95 09/18/21 00:03 37.6 C H 154 H 28 H 83/45 L 94 09/18/21 00:00 37.6 C H 154 H 28 H 93 09/17/21 23:59 37.6 C H 155 H 28 H 68/47 L 92 09/17/21 23:50 37.6 C H 144 H 11 L 95 09/17/21 23:45 37.6 C H 116 H 46 H 134/82 96 09/17/21 23:40 37.6 C H 104 H 44 H 96 09/17/21 23:31 37.6 C H 83 47 H 146/81 H 94 09/17/21 23:30 37.6 C H 91 H 47 H 94 09/17/21 23:20 37.6 C H 84 49 H 87 L 09/17/21 23:10 37.6 C H 97 H 44 H 92 09/17/21 23:00 37.6 C H 99 H 45 H 143/95 H 92 09/17/21 22:56 103 H 09/17/21 22:50 37.6 C H 96 H 50 H Coding Level of Care Code Critical Care ea addt'l 30 min Diagnoses Respiratory failure with hypoxia J96.91 Metastatic malignant neoplasm to lung C78.00 Ascites R18.8 Pleural effusion J90 Acute hyponatremia E87.1 Pulmonary emboli I26.99 Atrial fibrillation with RVR I48.91 Subclavian vein occlusion I82.B19 Collapse of right lung J98.11 End of life care Z51.5 Time Spent (min) 39
--- NOTE | 2021-09-18 11:43 | Electrocardiogram Report ---
Test Reason : Blood Pressure : / mmHG Vent. Rate : 143 BPM Atrial Rate : 322 BPM P-R Int : 000 ms QRS Dur : 082 ms QT Int : 288 ms P-R-T Axes : 000 058 125 degrees QTc Int : 444 ms Atrial flutter with variable A-V block Nonspecific ST and T wave abnormality Abnormal ECG No previous ECGs available Confirmed by Pino Lewis ([id number]) on 09/18/2021 11:43:42 AM Referred By: REFERRED SELF Confirmed By:Pino Lewis
--- NOTE | 2021-09-18 11:52 | Electrocardiogram Report ---
Test Reason : Blood Pressure : / mmHG Vent. Rate : 161 BPM Atrial Rate : 322 BPM P-R Int : 000 ms QRS Dur : 090 ms QT Int : 326 ms P-R-T Axes : 000 030 140 degrees QTc Int : 533 ms Atrial flutter with 2:1 A-V conduction Marked ST abnormality, possible lateral subendocardial injury Abnormal ECG No previous ECGs available Confirmed by Pino Lewis ([id number]) on 09/18/2021 11:51:37 AM Referred By: REFERRED SELF Confirmed By:Pino Lewis
--- NOTE | 2021-09-18 11:52 | Electrocardiogram Report ---
Test Reason : Blood Pressure : / mmHG Vent. Rate : 100 BPM Atrial Rate : 330 BPM P-R Int : 000 ms QRS Dur : 100 ms QT Int : 338 ms P-R-T Axes : 063 038 050 degrees QTc Int : 436 ms Poor data quality, interpretation may be adversely affected Atrial flutter with variable A-V block Nonspecific ST abnormality Abnormal ECG When compared with ECG of 17-SEP-2021 19:00, (unconfirmed) Vent. rate has decreased BY [address] elevation now present in Inferior leads ST no longer depressed in Lateral leads Confirmed by Pino Lewis ([id number]) on 09/18/2021 11:51:52 AM Referred By: REFERRED SELF Confirmed By:Pino Lewis
[2021-09-18] MEDS ORDERED: LORazepam 0.5 MG TAB PO PRN (12:54)
[2021-09-18] MEDS ORDERED: ONDANSETRON 4 MG OD TAB SL PRN ×2 (12:54→14:13)
[2021-09-18] MEDS ORDERED: ONDANSETRON INJ 2 MG/ML 2 ML VIAL IV PRN ×2 (12:54→14:13)
[2021-09-18] MEDS ORDERED: MoRPHine SULFATE 5 MG/0.25 ML UDP PO PRN (12:54)
[2021-09-18] MEDS ORDERED: LORazepam 0.5 MG/1 ML VIAL IV PRN ×2 (12:54→14:13)
[2021-09-18] MEDS ORDERED: ACETAMINOPHEN 650 MG SUPP PR PRN (12:54)
[2021-09-18] MEDS ORDERED: MoRPHine SULFATE 2 MG/ML CARP IV PRN (12:54)
--- NOTE | 2021-09-18 13:37 | Pharmacy Report ---
Pharmacy Glycemic Short Note 2 - Date of Service September 18, 2021 - Glycemic Short BSG Results (Last 24 hours): 09/17/21 09/17/21 09/17/21 19:12 19:17 23:15 Glucose 160 H 161 H POC Glucose POC Glucose (other) 170 H 09/17/21 09/18/21 09/18/21 23:22 04:19 05:13 Glucose 183 H POC Glucose 161 H POC Glucose (other) 207 H 09/18/21 09/18/21 08:51 11:44 Glucose POC Glucose 162 H 156 H POC Glucose (other) OUTPATIENT ANTIDIABETIC REGIMEN: * n/a ASSESSMENT: * 61 year old male, critically ill with recent dx of large cell neuroendocrine tumor. Presenting to ICU with new onset afib, requiring bipap. Pharmacy consulted for glycemic management. * A1c pending, no home diabetes medication listed. Novolog started per ICU hyperglycemia protocol PLAN FOR INPATIENT GLYCEMIC CONTROL: * Hold outpatient oral diabetes medications * Basal insulin * hold * Bolus insulin * NovoLog per scale ACHS or Q6hrs while NPO * See protocol * Nutritional / Prandial insulin per carb ratio of 1 unit per 11 grams CHO consumed PLAN FOR DISCHARGE: * tbd
[2021-09-18] MEDS: GLYCOPYRROLATE 0.2 MG/ML VIAL IV PRN ×2 (14:06→18:28)
[2021-09-18] MEDS ORDERED: MoRPHine SULF/NSS 250 MG/250 ML BTL IV SCH (14:15)
[2021-09-18] MEDS ORDERED: AMIODARONE / D5W 360 MG/200 ML BAG IV SCH (16:00)
--- NOTE | 2021-09-18 19:34 | Death Pronouncement Note ---
Date of Service September 18, 2021 Pronouncement Note Admission Date Admission Date: September 17, 2021 PRONOUNCEMENT NOTE - Date: 09/18/2021 Time: 1919 I was contacted by nursing staff regarding the patients declining status and concerns for imminent demise. In short, patient was admitted last evening with acute hypoxic respiratory failure secondary to right lung collapse due to progression of metastatic disease. He required intubation and was on multiple vasopressors. Prognosis was determined to be poor and discussion was held with the patient's who decided to palliatively extubate this afternoon. Patient was extubated to comfort measures. Assessment: I presented to the patients room for evaluation. Upon assessment, the patient was found to be in a terminal state. Pupils were fixed and dilated without response. No palpable pulses appreciated. No spontaneous breaths noted. Heart sounds were absent. No response to painful stimuli. Time of : 1919 as pronounced by myself. Patients primary service was contacted and made aware of patient demise. Pronouncement section of the Certificate was filled out and signed by myself. Cause of : Primary -hypoxic respiratory failure Secondary -metastatic lung cancer Please feel free to contact me with any questions regarding the above-mentioned course. Contributing Factors (1) Metastatic malignant neoplasm to lung: (2) Respiratory failure with hypoxia: (3) Ascites: (4) Pleural effusion: (5) Acute hyponatremia: (6) Pulmonary emboli: (7) Atrial fibrillation with RVR: Additional Data Attending physician: Jovi Osborne MD Coding Level of Care Code None Diagnoses Metastatic malignant neoplasm to lung C78.00 Respiratory failure with hypoxia J96.91 Ascites R18.8 Pleural effusion J90 Acute hyponatremia E87.1 Pulmonary emboli I26.99 Atrial fibrillation with RVR I48.91
[2021-09-19] MEDS ORDERED: PIPERACILLIN/TAZOBACTAM 3.375 GM in DEXTROSE 5% 100 ML IV SCH (04:00)
--- NOTE | 2021-09-19 06:13 | Discharge Summary ---
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 History is obtained through patient, family, and review of existing records, which are limited, in our system. Patient reports that over the last 3 to 4 days, he has had progressively worsening shortness of breath. This is worse with lying down and exertion. He does endorse some coughing. At request of his oncologist, he had tried increasing his O2 to 6L (from 3), but unfortunately this did not help. His family said that he has been appearing more fatigued and ill-appearing over this time. He denies any fevers, chills, sweats, or pains. He did have a COVID- 19 exposure with a family member approx. 14 days prior to his arrival here, per family, but has not had a COVID test. Unfortunately, his cancer diagnosis is new over the last 2-3 months. He follows with Dr. Deleon at [facility] and his last chemotherapy treatment was apparently 2-3 weeks ago (he does not know name of this and I do not have records available at this time). PET-CT obtained in early August did reveal a mass occupying >50% of R hemithorax along with extensive metastatic disease (LNs, pulmonary nodules, liver lesions, mesenteric carcinomatosis). MRI of the brain also showed R cerebellar lesion concerning for metastatic disease. His and sister did endorse that he wanted to "take a chance" with fighting his chemotherapy. His does say that he signed a [id number] document (type unknown at this time) that specified that he did NOT want a ventilator or compressions. On further discussion with attending physician (see attestation), patient did specify that he WOULD want intubated and cardiac resuscitation if needed. Socially - he lives at home with his . His sister is a nurse practitioner locally and provides input on his care. Per them, up until a few days ago / over the last few weeks, Shahram was still working regularly at home. 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 ED course: respiratory distress initially requiring OxyMask. Cardiac monitoring demonstrating atrial flutter w/ RVR at rate of 160. Given adenosine x 1 and subsequently started on cardizem drip. ED physician spoke with jet dyeing machine tender and CTA-Chest that was obtained was reviewed - significant for R lung collapse with worsening metastasis and mucus plugging; also significant for findings concerning for segmental and subsegmental pulmonary emboli of LLL. After CT, patient did have worsening respiratory status and was placed on BiPAP - VBG pH 7.35 / pCO2 57. His lactate was appreciated at 2.2. Heart rate and respiratory distress/oxygenation improved. Started on heparin for PEs/hypercoagulability. Given cefepime x 1. Admitted to ICU given concerns for respiratory demise. Admission Exam Per Admitting Provider General: Ill-appearing 61-year-old gentleman, lying back in his hospital bed upon my arrival. He has a BiPAP on. HEENT: Unable to reliably assess for JVD. Trachea midline. Cardiac: Rapid rate, irregular rhythm. S1 and S2 are present without murmurs rubs or gallops. Pulmonary: Increased respiratory effort and rate with symmetric expansion of the chest. BiPAP in place. Diminished lung sounds appreciated on the right hemithorax. Auscultation of the left hemithorax does reveal scattered wheezes and crackles near the base. Abdominal: Abdomen does demonstrate mild ascites. Otherwise, nondistended and nontender. Extremities: There is trace peripheral edema in the lower extremities bila terally Psychiatric: Alert and oriented Neurologic: Cranial nerves II through XII grossly intact. Moves all extremities symmetrically. Principal Diagnosis acute hypoxic respiratory failure metastatic lung cancer Discharge Exam Please see note signed and entered by DANY Canas, which contains the physical exam performed to confirm terminal state / . Discharge Data Allergies Allergy/AdvReac Type Severity Reaction Status Date / Time No Known Allergies Allergy Unverified 09/17/21 19:42 Consultations 09/17/21 20:08 ED Decision to Admit Stat 09/17/21 22:56 Consult Site Planner Routine Ordered Studies 09/17/21 18:50 CT angio chest PE protocol Stat Total Time Total Time Spent Total Time Spent (In Minutes): 20 Discharge Plan Discharge Items Patient Disposition: Discharge Diagnosis: Hypoxic Respiratory Failure Metastatic Lung Cancer Addtl Attending Provider Instructions: This is a 61-year-old male with a history of large R-sided neuroendocrine carcinoma of the lung with diffuse metastates and 3L baseline O2 requirement who presented to [facility] for evaluation of respiratory distress, subsequently found to have acute hypoxic respiratory failure and atrial flutter w/ RVR, presumed to be secondary to complete R lung c onsolidation, progression of his carcinoma, mucus plugging, possible segmental/subsegmental pulmonary emboli, and small-moderate effusions. Shortly after admission, he was transferred to the ICU for increasing respiratory effort. He was intubated shortly thereafter. Bronchoscopy was done, which demonstrate complete compression of R bronchi collapse. After discussions with family on 09/18, opted to transition goals of care towards achieving comfort rather than further pursuing aggressive measures. His code status was changed to DNR/DNI and comfort measures were pursued. He later peacefully on 09/18/2021 at 1920 and was pronounced by DANY Canas. Family was notified shortly thereafter. Comfort Measures -Goals of care discussion held between ICU/Primary Team and Family - opted to transition patient to DNR/DNI with comfort measures Acute Hypoxic Respiratory Failure * Rapid respiratory decline upon admission shortly thereafter requiring intubation and transfer to the ICU. Also required pressors. Pulmonary attempted bronchoscopy - demonstrated R bronchi collapse, inability to stent. * Likely multifactorial: progression of very large R lung lung neuroendocrine carcinoma w/ metastases, possible bronchial obstruction from the mass, segmental / subsegmental PEs, small/moderate pleural effusions, mucus plugging, possible acute HF in setting of AFib w/ RVR + elevated BNP * No direct evidence of infectious contribution at this time -- COVID19 neg, procal neg, no leukocytosis. Briefly was on Zosyn. * Mucociliary clearance used: vibratory vest, hypertonic saline nebs, albuterol *After discussion with family, code status changed to DNR/DNI, moved to comfort measures, other medications discontinued Atrial Flutter w/ RVR * New diagnosis in setting of AHRF, worsening cancer * Found to be in RVR in the ED, rates around 160s -- required adenosine, diltiazem gtt Concern for Pulmonary Emboli * In setting of diffusely metastatic disease, as outlined below * CTA-PE demonstrating concern for "equivocal segmental and subsegmental pulmonary emboli of the LLL", however may also be artifact * Thrombus in L subclavian vein, which is new, noted * Heparin gtt was utilized initially - d/c'd after [employer] Subclavian Vein Thrombus * CTA-Chest revealing "3.5cm thrombus of the proximal L subclavian vein", new from prior study * As above Hyponatremia * Na 123 on arrival, was near-normal at beginning of month. 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 No e/o ALEX. * Fluid restriction, Lasix x 1 - ongoing monitoring done prior to [employer] Neuroendocrine Carcinoma with Diffuse Metastases * Patient with known history of large R-sided neuroendocrine carcinoma of the R lung, recently established with Dr. Deleon and had at least one chemotherapy treatment- name of medication unknown, notes unavailable at this time * CTA-Chest demonstrating progressively worsening metastatic disease in the chest, abdomen, mesenteries, bones, liver -- MRI from earlier this month also concerning for cerebral lesion * As above. Per discussion with family, estimate poor prognosis, status changed to DNR/DNI comfort measures only Mood Disorder * patient moved to comfort measures, all other medication discontinued Other Date/Time: 09/18/21 19:20 Supervising Physician Co-Signing Physician Notes Attending attestation Pt seen and examined in concert with Dr. Velasquez on day prior to patient expiry. In agreement with Dr. Rasmussen' documented findings as noted in the resident documentation with any exceptions or additions as noted here. AHRF in the setting of R sided neuroendocrine tumor with mets - transitioning to comfort measures after discussion with the family including review of current medical progress, interventions and available supports for a total of 35 minutes. Morphine IV and Roxicodone PO for control of air hunger, ativan for agitation. Family support. Else see resident documentation as noted. Resident Activity Tracking Resident Involvement: Resident Care Provided Care Provided: Adult Hospital Medicine
[2021-09-19 07:44] LABS: Estimated Average Glucose 137 mg/dl; Hemoglobin A1C 6.4 % (4.5-5.6)
== END 2021-09-18 20:30 | disposition expired | DRG 208 ==
LOC: ED 18:22 → 1E 20:57 → SUATTDRO 20:57 → 1E 22:35
DX: E22.2 Syndrome of inappropriate secretion of antidiuretic hormone; R00.0 Tachycardia, unspecified; J90 Pleural effusion, not elsewhere classified; C7A.8 Other malignant neuroendocrine tumors; Y92.009 Unspecified place in unspecified non-institutional (private) residence as the place of occurrence of the external cause; D68.59 Other primary thrombophilia; I26.93 Single subsegmental thrombotic pulmonary embolism without acute cor pulmonale; R18.8 Other ascites; C79.51 Secondary malignant neoplasm of bone; I50.9 Heart failure, unspecified; C78.7 Secondary malignant neoplasm of liver and intrahepatic bile duct; I82.B12 Acute embolism and thrombosis of left subclavian vein; Z51.5 Encounter for palliative care; E87.2 Acidosis; T17.990A Other foreign object in respiratory tract, part unspecified in causing asphyxiation, initial encounter; Z79.891 Long term (current) use of opiate analgesic; I48.92 Unspecified atrial flutter; N18.9 Chronic kidney disease, unspecified; I48.91 Unspecified atrial fibrillation; J98.19 Other pulmonary collapse; J96.01 Acute respiratory failure with hypoxia; Z66 Do not resuscitate; Z20.822 Contact with and (suspected) exposure to COVID-19; F39 Unspecified mood [affective] disorder; C78.6 Secondary malignant neoplasm of retroperitoneum and peritoneum